=== PATIENT | female | born 1955 | race Caucasian/White ===

== ENCOUNTER → 2018-12-22 | Outpatient (CLI) | payer MEDICARE, BC ==
[2018-12-22 15:30] LABS: HCT 39.8 % (34.0-46.0); HGB 12.9 gm/dL (11.4-16.0); MCH 30.4 pg (25.0-35.0); MCHC 32.3 g/dL (31.0-37.0); MCV 94.1 fL (80.0-100.0); Mean Platelet Volume 7.6; Platelet Count 314 k/uL (150-450); RBC 4.23 m/uL (3.80-5.40); RDW 14.4 % (11.5-15.5); WBC 7.7 k/uL (3.8-10.6)
[2018-12-22 15:36] LABS: Albumin 3.7 g/dL (3.5-5.0); Calcium 9.2 mg/dL (8.4-10.2); Potassium 4.6 mmol/L (3.5-5.1); Total Bilirubin 0.5 mg/dL (0.2-1.3); Total Protein 6.5 g/dL (6.3-8.2)
[2018-12-22 15:45] LABS: INR 0.9 (<1.2); Partial Thromboplastin Time 23.6 sec (22.0-30.0); Prothrombin Time 10.2 sec (9.0-12.0)
[2018-12-22 15:52] LABS: Appearance,Urine Cloudy (Clear); Bilirubin,Urine Negative (Negative); Blood,Urine Negative (Negative); Color,Urine Yellow; Glucose,Urine (UA) Negative (Negative); Hyaline Casts,Urine 11 /lpf (0-2); Ketones,Urine Negative (Negative); Leukocyte Esterase,Urine Large (Negative); Mucus,Urine Rare /hpf; Nitrite,Urine Negative (Negative); PH, Urine 6.5 (5.0-8.0); Protein,Urine Negative (Negative); RBC,Urine 1 /hpf (0-5); Specific Gravity,Urine 1.017 (1.001-1.035); Squamous Epithelial Cell,Urine 4 /hpf (0-4); WBC,Urine 33 /hpf (0-5)
== END | disposition home or self-care (01) ==
LOC: LABPAT 13:12
PROVIDERS: ATTEND Orthopaedic Surgery
DX: Z01.812 Encounter for preprocedural laboratory examination (principal); Z79.01 Long term (current) use of anticoagulants
CPT/HCPCS: 80053; 81001; 85027; 85610; 85730; 87070

== ENCOUNTER 2018-12-27 07:44 | Inpatient (IN) | payer MEDICARE, BC ==
[~2018-12-27 07:44] MED LIST: ACETAMINOPHEN TAB 500 MG TAB PO ONE; GABAPENTIN 300 MG CAP PO ONE; LIDOCAINE 1% 20 ML VIAL (10MG/ML) FOR IV START INTRADERMA PRN; MELOXICAM 7.5 MG TAB PO ONE; MIDAZOLAM 2 MG/2 ML VIAL IV PRN; MIDAZOLAM 2 MG/2 ML VIAL ONE; PROPOFOL 10 MG/ML 20 ML VIAL IV ONE; ROPIVACAINE 246.25 MG, EPINEPHrine 0.5 MG, KETOROLAC 30 MG, cloNIDine HCL/PF 80 MCG, WA... MISCELLANE ONE; SODIUM CHLORIDE 0.9% 100 ML BAG ONE; TRANEXAMIC ACID 1,000 MG in SODIUM CHLORIDE 0.9% 100 ML IVPB ONE; TRANEXAMIC ACID 1,000 MG/10 ML VIAL ONE; ceFAZolin 3 GM in SODIUM CHLORIDE 0.9% 100 ML IVPB ONE; fentaNYL (PF) 50 MCG/ML 2 ML AMP IV PRN; fentaNYL (PF) 50 MCG/ML 2 ML AMP ONE
[2018-12-27] MEDS: LACTATED RINGERS 1,000 ML IV SCH ×2 (08:34→13:45)
[2018-12-27] MEDS ORDERED: ONDANSETRON 4 MG/2 ML VIAL IVP ONE (08:36)
[2018-12-27] MEDS ORDERED: DEXAMETHASONE SOD PHOSPHATE 10 MG/ML 1 ML VIAL IV ONE (08:36)
[2018-12-27] MEDS ORDERED: HYDROmorphone 0.5 MG/0.5 ML SYRINGE IVP PRN ×2 (09:06)
[2018-12-27] MEDS ORDERED: HYDROcodone/APAP 5-325MG 1 EACH TAB PO PRN (09:06)
[2018-12-27] MEDS ORDERED: HYDROmorphone 1 MG/ML 1 ML SYRINGE IVP PRN (09:06)
[2018-12-27] MEDS ORDERED: hydrOXYzine PAMOATE 25 MG CAP PO PRN (09:06)
[2018-12-27] MEDS ORDERED: NALOXONE 0.4 MG/ML 1 ML VIAL IV PRN (09:06)
[2018-12-27] MEDS ORDERED: MAGNESIUM HYDROXIDE 2,400 MG/10 ML CUP PO PRN (09:06)
[2018-12-27] MEDS ORDERED: DIAZEPAM 5 MG TAB PO PRN (09:06)
[2018-12-27] MEDS ORDERED: SODIUM CHLORIDE 0.9% IRRIG 1,000 ML BTL IRRIGATION ONE (09:30)
[2018-12-27] MEDS ORDERED: HEPARIN SODIUM,PORCINE 10,000 UNIT/ML 1 ML VIAL ONE (09:30)
[2018-12-27] MEDS: ROPIVACAINE 246.25 MG, EPINEPHrine 0.5 MG, KETOROLAC 30 MG, cloNIDine HCL/PF 80 MCG, WA... MISCELLANE ONE ×10 (10:16→10:43)
--- NOTE | 2018-12-27 11:15 | P.OP ---
Date of Procedure: 12/27/18 Preoperative Diagnosis: Severe osteoarthritis left hip Postoperative Diagnosis: Severe osteoarthritis left hip Procedure(s) Performed: Left total hip arthroplasty with a direct anterior approach Implants: Hernandez and nephew Polarstem size 4 standard Hernandez & Nephew R3, 3 hole acetabular shell, 52 mm Hernandez & Nephew reflection 6.5 mm cancellus screw, 20 mm 2 Hernandez [employer] Nephew R3, XLPE 20 acetabular liner Hernandez & Nephew Oxinium femoral head 36 m, +4 All components were press-fit. The articulation is Oxinium on polyethylene. Anesthesia: spinal Surgeon: Everardo Henderson Sales Planner #1: Katie Krueger Estimated Blood Loss (ml): 120 (50 mL returned with Cell Saver) Pathology: other (Femoral head) Condition: stable Disposition: PACU Indications for Procedure: After failure of conservative treatment we discussed the surgical and nonsurgical treatment options at length. Patient wishes to proceed with a total hip arthroplasty with a direct anterior approach. Complications specific to this procedure were discussed at length, including but not limited to infection, leg length discrepancy, dislocation, and nerve injury. Patient is aware of all these complications and informed consent was obtained Operative Findings: The operative findings are consistent with severe osteoarthritis of the left hip Description of Procedure: Patient was seen and evaluated in the preoperative area, consent was reviewed, and the surgical site was marked with a skin marker. Patient was then brought to the operating room and given prophylactic antibiotics intravenously. 1 g of Tranexamic acid was also given. A spinal anesthetic was administered by the anesthesia department. The patient was then placed on the [place] table with the bony prominences well-padded. The hip area was then prepped and draped in usual sterile fashion. A universal timeout was then performed, which confirmed the patient's name, surgical site, ALLERGIES, and procedure being performed. Next the incision site was located at 1 cm distal and 1 cm lateral to the anterior superior iliac spine. The skin and subcutaneous tissues were sharply incised. Incision was carefully dissected down to the fascia overlying the tensor fascia zach muscle. This fascia was then incised in line with the incision. Next, using blunt finger dissection, the tensor fascia zach muscle was dissected off its investing fascia. The muscle was then carefully retracted laterally with a cobra retractor over the lateral neck of the femur. Next, the circumflex vessels were identified and cauterized using the AquaMantis device. The anterior hip capsule was then exposed. The capsule was then opened and an inverted T fashion. Cobra retractors were then placed intracapsularly. The proximal femur was then visu alized. The femoral neck was then osteotomized appropriate level above the lesser trochanter. Small amount of traction was placed with the [place] table. A small wedge of bone was then removed from the remaining femoral head. Next, using a corkscrew femoral head was easily removed from the acetabulum. On gross visual inspection, the femoral head had complete loss of articular cartilage in multip le periarticular osteophytes. Attention was then turned to the acetabulum. the acetabulum was exposed and any remaining labrum was excised. Sequential reaming of the acetabulum was performed using fluoroscopic guidance. When the appropriate size was reached, a trial was then placed. The position and fit of the trial was checked with fluoroscopy. The trial was then removed. Then, using fluoroscopic guidance, the final implant was impacted at 20 of anteversion and 40 of abduction, and fully seated in the acetabulum. 2 screws were then placed in the acetabulum. Again fluoroscopy was used to check position of the screws. Next, the liner was then impacted, with a 20 elevated liner located in the anterior superior quadrant. Component locking was confirmed. Attention was then directed to the femur. With the aid of the [place] table, the femur was externally rotated to approximately 130, extended, and abducted under the opposite leg. A side hook was then placed under the proximal femur, and the side hook elevator was used to elevate the proximal femur. Retractors were then placed. A capsular release was performed, as well as a release of the conjoined tendon, which afforded excellent visualization of the proximal femur. Next, a box osteotome was used to lateralize the proximal femur. A sole sewer hand was then used to locate the femoral canal. Sequential broaching was then performed with appropriate size which afforded excellent fixation in the proximal femur. A trial was then placed with appropriate head and neck, and the hip was gently reduced with the aid of the [place] table. Fluoroscopy was then used to check position of the components, as well as to ensure equal leg lengths. The hip was then gently dislocated and the trials were then removed. Final implants were then impacted and the hip was again reduced. Final fluoroscopic x-rays confirmed that the components were in anatomic position, as well as equal leg lengths. The hip was also taken through range of motion, and found to be stable. The hip was then copiously irrigated with antibiotic solution with pulsatile lavage. The hip was then irrigated with Irrisept solution. The soft tissues were then injected with a ropivacaine solution, which consisted of 246.25 mg of ropivacaine, 0.5 mg of epinephrine, 30 mg of Toradol, 80 g of clonidine, and 48.45 mL of sterile water, for a total of 100 mL of fluid injected. A second dose of 1 g of Tranexamic acid was also given. the fascia was then closed with 2-0 strata fix suture. The subcutaneous tissue was closed with 3-0 Vicryl. The subcuticular tissue was closed with 3-0 strata fix suture. The skin was then closed with Dermabond glue and a sterile silver dressing. The patient was then transferred to the recovery room in stable condition. The web assistant ANGELI Barrera was required due to the complexity of surgery, and the need for skilled manager surgical for positioning, draping, exposure, retraction, and closure of the wound.
[2018-12-27] MEDS ORDERED: LACTATED RINGERS 1,000 ML IV ONE (11:38)
--- NOTE | 2018-12-27 12:31 | XR ---
Limited left hip HISTORY: Status post left hip arthroplasty Single frontal view of the left hip Patient is status post left hip arthroplasty. Some lucency present at the lateral bony acetabulum is noted, small chip fracture difficult to exclude. There is anatomic alignment. Lucency present in the soft tissues. IMPRESSION: Orthopedic follow-up as described.
[2018-12-27] MEDS: SODIUM CHLORIDE 0.9% 1,000 ML IV SCH ×2 (13:45→22:07)
[2018-12-27 14:30] VITALS: BMI 51.5
--- NOTE | 2018-12-27 14:40 | FL ---
Fluoroscopy HISTORY: Left hip arthroplasty 42 seconds fluoroscopy time supplied to the referring clinician. 2 intraoperative C-arm images docum ent the procedure. See dictated report from orthopedic surgery.
--- NOTE | 2018-12-27 14:40 | XR ---
Limited left hip HISTORY: Hip arthroplasty 2 intraoperative C-arm images document the procedure.
[2018-12-27] MEDS: HYDROcodone/APAP 5-325MG 1 EACH TAB PO PRN (15:20)
[2018-12-27] MEDS ORDERED: SENNOSIDES-DOCUSATE SODIUM 1 EACH TAB PO SCH (21:00)
[2018-12-27] MEDS ORDERED: CARBIDOPA-LEVODOPA 25-100 MG 1 EACH TAB PO SCH (21:00)
[2018-12-27] MEDS ORDERED: rOPINIRole HCL 4 MG TABLET PO SCH (21:00)
[2018-12-27] MEDS ORDERED: GABAPENTIN 300 MG CAP PO SCH (21:00)
--- NOTE | 2018-12-27 21:43 | P.CONS ---
History of Present Illness - Reason for Consult Consult date: 12/27/18 Medical management Requesting physician: Everardo Henderson - Chief Complaint Left hip pain - History of Present Illness Consultation: This is a very pleasant 63-year-old patient who follows with Dr. Natty Rose. Chronic stable medical conditions include atrial fibrillation, hypertension, obstructive sleep apnea uses CPAP machine, hypothyroid, anxiety depression. Patient does take eliquis. Patient today underwent left total hip arthroplasty. Pain is controlled. His only walk to the bathroom. No nausea vomiting. Did tolerate her supper. No chest pain or shortness of breath. Overall feels better. Sitting up in a chair. Watch television. Review of systems: GEN.: None EYES: None HEENT: None NECK: None RESPIRATORY: None CARDIOVASCULAR: None GASTROINTESTINAL: None GENITOURINARY: None MUSCULOSKELETAL: Authentic pain in his joints LYMPHATICS: None HEMATOLOGICAL: None PSYCHIATRY: Anxiety depression controlled NEUROLOGICAL: None Social history: Does not smoke or drink alcohol. Is a . Physical examination: VITAL SIGNS: 98.3, 69, 18, 108/66, 93% on room air GENERAL: BMI 50.6, sitting upon a chair, comfortable. EYES: Pupils equal. Conjunctiva normal. HEENT: External appearance of nose and ears normal, oral cavity grossly normal. NECK: JVD not raised; masses not palpable. HEART: First and second heart sounds are normal; no edema. LUNGS: Respiratory rate normal; clear to auscultation. ABDOMEN: Soft, nontender, liver spleen not palpable, no masses palpable. PSYCH: Alert and oriented x3; mood and affect normal. NEUROLOGICAL: Cranial nerves grossly intact; no facial asymmetry, power and sensation grossly intact. LYMPHATICS: No lymph nodes palpable in the axilla and neck MUSCULOSKELETAL: Evidence of OA in the hands, dressing over the left hip INVESTIGATIONS, reviewed in the clinical context: Blood work from 12/22/2018 White count 7.7 hemoglobin 12.9 potassium 4.6 creatinine 0.94 Assessment: -Left total hip arthroplasty -Persistent atrial fibrillation, chronically on eliquis -Essential hypertension -Obstructive sleep apnea uses CPAP machine -Hypothyroid -Anxiety depression otherwise specified -Morbid obesity BMI 50.6 Plan: Home medications resumed. Eliquis has been resumed. Care was discussed with the patient. Patient should follow-up with the family doctor and possibly dietitian for weight loss measures. Thank you Dr. Henderson Past Medical History Past Medical History: Atrial Fibrillation, Cancer, Hypertension, Osteoarthritis (OA), Sleep Apnea/CPAP/BIPAP Additional Past Medical History / Comment(s): uses cpap,hx uterine CA-no chemo or radiation History of Any Multi-Drug Resistant Organisms: None Reported Past Surgical History: Hysterectomy, Joint Replacement, Orthopedic Surgery Additional Past Surgical History / Comment(s): rt hip repacement,paulie en y,left thumb jt arthroplasty,carpel tunnel release solo,micro discectomy L4-L5 Past Anesthesia/Blood Transfusion Reactions: No Reported Reaction, Motion Sickness Additional Past Anesthesia/Blood Transfusion Reaction / Comm: no problems with prior blood transfusion Past Psychological History: Anxiety, Depression Smoking Status: Never smoker Past Alcohol Use History: None Reported Past Drug Use History: None Reported - Past Family History Mother Family Medical History: Cancer Additional Family Medical History / Comment(s): lung CA Medications and Allergies Home Medications Medication Instructions Recorded Confirmed Type Apixaban [Eliquis] 5 mg PO BID 12/21/18 12/27/18 History Carbidopa-Levodopa 25-100 mg 2 each PO HS 12/21/18 12/27/18 History [Sinemet 25-100] DULoxetine HCL [Cymbalta] 60 mg PO BID 12/21/18 12/27/18 History Diltiazem HCl [Cardizem LA] 180 mg PO QAM 12/21/18 12/27/18 History Ferrous Sulfate [Feosol] 325 mg PO DAILY 12/21/18 12/27/18 History Gabapentin [Neurontin] 600 mg PO HS 12/21/18 12/27/18 History Ibuprofen [Motrin] 800 mg PO BID 12/21/18 12/21/18 History Levothyroxine Sodium 150 mcg PO QAM 12/21/18 12/27/18 History Multivitamins, Thera [Multivitamin 1 tab PO DAILY 12/21/18 12/21/18 History (formulary)] Triamterene/Hydrochlorothiazid 1 each PO DAILY 12/21/18 12/27/18 History [Triamterene-Hctz 37.5-25 mg Tb] Vitamin D(Unknown Dose) 1 tab PO DAILY 12/21/18 History rOPINIRole HCL [Requip] 4 mg PO HS 12/21/18 12/27/18 History Allergies Allergy/AdvReac Type Severity Reaction Status Date / Time codeine AdvReac Nausea & Verified 12/27/18 08:07 Vomiting Physical Exam Vitals: Vital Signs Temp Pulse Resp BP Pulse Ox 12/27/18 19:03 98.3 F 69 18 108/66 93 L 12/27/18 14:45 71 109/62 12/27/18 14:30 67 118/65 12/27/18 14:15 67 121/63 12/27/18 14:00 97.6 F 71 14 115/67 99 12/27/18 13:30 67 16 114/62 99 12/27/18 13:00 64 16 111/60 99 12/27/18 12:45 66 16 115/54 98 12/27/18 12:30 61 16 106/51 98 12/27/18 12:17 76 16 104/67 98 12/27/18 12:16 62 16 91/55 99 12/27/18 12:01 67 16 89/48 95 12/27/18 11:44 97 F L 61 18 97/50 100 12/27/18 08:20 99.5 F 76 16 137/64 95 Intake and Output 12/27/18 12/27/18 12/27/18 06:59 14:59 22:59 Intake Total 1600 Output Total 120 Balance 1480 Intake: IV 1600 Output: Estimated Blood Loss 120
[2018-12-27] MEDS: DULoxetine HCL 60 MG CAPSULE.DR PO SCH (22:06)
[2018-12-28] MEDS: HYDROcodone/APAP 5-325MG 1 EACH TAB PO PRN (06:13)
[2018-12-28] MEDS ORDERED: LEVOTHYROXINE 50 MCG TAB PO SCH (06:30)
[2018-12-28] MEDS: DULoxetine HCL 60 MG CAPSULE.DR PO SCH (07:50)
[2018-12-28 08:14] LABS: Basophils % (A) 0 %; Eosinophils % (A) 0 %; HCT 37.2 % (34.0-46.0); Lymphocytes # (A) 0.9 k/uL (1.0-4.8); Lymphocytes % (A) 8 %; MCH 30.2 pg (25.0-35.0); MCHC 32.2 g/dL (31.0-37.0); MCV 93.9 fL (80.0-100.0); Monocytes # (A) 0.6 k/uL (0-1.0); Monocytes % (A) 6 %; Neutrophils # (A) 9.7 k/uL (1.3-7.7); Neutrophils % (A) 85 %; Platelet Count 329 k/uL (150-450); RBC 3.96 m/uL (3.80-5.40); RDW 13.2 % (11.5-15.5); WBC 11.3 k/uL (3.8-10.6)
[2018-12-28 08:19] VITALS: BP 107/68; PULSE 69; RESP 12; TEMP 98
[2018-12-28] MEDS ORDERED: DILTIAZEM CD 180 MG CAP.ER.24H PO SCH (09:00)
[2018-12-28] MEDS ORDERED: MULTIVITAMINS, THERA 1 EACH TAB PO SCH (09:00)
[2018-12-28] MEDS ORDERED: APIXABAN 5 MG TAB PO SCH (09:00)
[2018-12-28] MEDS ORDERED: FERROUS SULFATE 325 MG TAB PO SCH (09:00)
--- NOTE | 2018-12-28 09:25 | P.DS ---
Providers Date of admission: 12/27/18 07:44 Expected date of discharge: 12/28/18 Attending physician: Everardo Henderson Consults: 12/27/18 09:06 Consult Physician Routine Consulting Provider: Nader Chan Consult Reason/Comments: medical management and anticoagulation Do you want consulting provider notified?: Yes Primary care physician: Adriana Rose - Discharge Diagnosis(es) (1) Osteoarthritis of left hip Current Visit: Yes Status: Acute (2) Status post total hip replacement, left Current Visit: Yes Status: Acute Hospital Course: This is a 63-year-old female with known history of degenerative arthritis of the left hip. The patient presents for evaluation. After discussion and consideration patient elects to proceed with total hip arthroplasty. The patient is seen preoperatively by Dr. Henderson and medically cleared for surgery by their primary care physician. Patient is admitted to [facility] on 12/27/2018 for total hip arthroplasty. The procedures performed without complication or sequelae. The patient is doing well postoperatively. Labs and vital signs are stable on day of discharge. On day of discharge patient's hip incision is healing well. There is minimal erythema. There is no drainage noted at this time. There is minimal soft tissue swelling to the hip and thigh. Patient has full foot and ankle motion without difficulty or pain. Calf is soft and nontender to palpation. Neurovascular status to the left lower extremity is intact. Patient is discharged home in good condition. Opioid start talking form is reviewed and signed at patient bedside. Please see med rec for accurate list of home medications. Plan - Discharge Summary Discharge Rx Participant: No New Discharge Prescriptions: New HYDROcodone/APAP 5-325MG [[place] 5-325] 1 - 2 tab PO Q6HR PRN #56 tab PRN Reason: Pain Sennosides [Senokot] 1 tab PO BID #60 tablet No Action Levothyroxine Sodium 150 mcg PO QAM Apixaban [Eliquis] 5 mg PO BID DULoxetine HCL [Cymbalta] 60 mg PO BID Triamterene/Hydrochlorothiazid [Triamterene-Hctz 37.5-25 mg Tb] 1 each PO DAILY Diltiazem HCl [Cardizem LA] 180 mg PO QAM Ferrous Sulfate [Feosol] 325 mg PO DAILY rOPINIRole HCL [Requip] 4 mg PO HS Multivitamins, Thera [Multivitamin (formulary)] 1 tab PO DAILY Gabapentin [Neurontin] 600 mg PO HS Carbidopa-Levodopa 25-100 mg [Sinemet 25-100] 2 each PO HS Ibuprofen [Motrin] 800 mg PO BID Vitamin D(Unknown Dose) 1 tab PO DAILY Discharge Medication List Apixaban [Eliquis] 5 mg PO BID 12/21/18 [History] Carbidopa-Levodopa 25-100 mg [Sinemet 25-100] 2 each PO HS 12/21/18 [History] DULoxetine HCL [Cymbalta] 60 mg PO BID 12/21/18 [History] Diltiazem HCl [Cardizem LA] 180 mg PO QAM 12/21/18 [History] Ferrous Sulfate [Feosol] 325 mg PO DAILY 12/21/18 [History] Gabapentin [Neurontin] 600 mg PO HS 12/21/18 [History] Ibuprofen [Motrin] 800 mg PO BID 12/21/18 [History] Levothyroxine Sodium 150 mcg PO QAM 12/21/18 [History] Multivitamins, Thera [Multivitamin (formulary)] 1 tab PO DAILY 12/21/18 [History] Triamterene/Hydrochlorothiazid [Triamterene-Hctz 37.5-25 mg Tb] 1 each PO DAILY 12/21/18 [History] Vitamin D(Unknown Dose) 1 tab PO DAILY 12/21/18 [History] rOPINIRole HCL [Requip] 4 mg PO HS 12/21/18 [History] HYDROcodone/APAP 5-325MG [[place] 5-325] 1 - 2 tab PO Q6HR PRN #56 tab 12/28/18 [Rx] Sennosides [Senokot] 1 tab PO BID #60 tablet 12/28/18 [Rx] Follow up Appointment(s)/Referral(s): Everardo Henderson DO [Doctor of Osteopathic Medicine] - 01/13/19 2:00 pm Patient Instructions/Handouts: Anterior Hip Replacement (DC) Activity/Diet/Wound Care/Special Instructions: Weightbearing as tolerated with walker. Leave dressing intact. Dressing may be removed by home care nurse or by patient in 10 days. May shower with dressing on. Recommend use of compression stockings daily for at least 2 weeks during the day to help prevent swelling and blood clots. May remove at night before sleeping. Please follow-up with [facility] in 2 weeks and call with any questions or concerns, . Discharge Disposition: HOME WITH HOME HEALTH SERVICES
--- NOTE | 2018-12-29 01:16 | P.PN ---
Progress Note - Text Progress Note Date: 12/28/18 Interval history: This is a very pleasant 63-year-old patient who follows with Dr. Natty Rose. Chronic stable medical conditions include atrial fibrillation, hypertension, obstructive sleep apnea uses CPAP machine, hypothyroid, anxiety depression. Patient does take eliquis. Patient underwent left total hip arthroplasty. Pain is controlled. His only walk to the bathroom. No nausea vomiting. Did tolerate her supper. No chest pain or shortness of breath. Overall feels better. Sitting up in a chair. Watch television. Today-feeling better. Patient controlled. Has been out of bed. Did tolerate her diet. No nausea vomiting. Review of systems: Was done for constitutional, cardiovascular, GI, pulmonary. Musculoskeletal relevant finding as above Current medications reviewed from today's electronic records Physical examination: VITAL SIGNS: 98, 69, 12, 107/68, 97% room air GENERAL: BMI 50.6, sitting upon a chair, comfortable. EYES: Pupils equal. Conjunctiva normal. HEENT: External appearance of nose and ears normal, oral cavity grossly normal. NECK: JVD not raised; masses not palpable. HEART: First and second heart sounds are normal; no edema. LUNGS: Respiratory rate normal; clear to auscultation. ABDOMEN: Soft, nontender, liver spleen not palpable, no masses palpable. PSYCH: Alert and oriented x3; mood and affect normal. MUSCULOSKELETAL: Evidence of OA in the hands, dressing over the left hip INVESTIGATIONS, reviewed in the clinical context: Hemoglobin 12 Blood work from 12/22/2018 White count 7.7 hemoglobin 12.9 potassium 4.6 creatinine 0.94 Assessment: -Left total hip arthroplasty -Persistent atrial fibrillation, chronically on eliquis -Essential hypertension -Obstructive sleep apnea uses CPAP machine -Hypothyroid -Anxiety depression otherwise specified -Morbid obesity BMI 50.6 Plan: Stable. Continue current medications for plan. Thank you Dr. Henderson
== END 2018-12-28 11:46 | disposition home health service (06) | DRG 470 ==
LOC: 2ORMAIN 07:44 → 4SSUR 13:41
PROVIDERS: ADMIT Orthopaedic Surgery; ATTEND Orthopaedic Surgery
PROC: 30233N0 Transfusion of Autologous Red Blood Cells into Peripheral Vein, Percutaneous Approach (ICD-10-PCS; 2018-12-27)
PROC: 0SRB06A Replacement of Left Hip Joint with Oxidized Zirconium on Polyethylene Synthetic Substitute, Uncemented, Open Approach (ICD-10-PCS; principal; 2018-12-27 09:15)
DX: M16.12 Unilateral primary osteoarthritis, left hip (principal); I48.1 Persistent atrial fibrillation; Z68.43 Body mass index [BMI] 50.0-59.9, adult; E66.01 Morbid (severe) obesity due to excess calories; I10 Essential (primary) hypertension; G47.33 Obstructive sleep apnea (adult) (pediatric); E03.9 Hypothyroidism, unspecified; F32.9 Major depressive disorder, single episode, unspecified; F41.9 Anxiety disorder, unspecified; G25.81 Restless legs syndrome; Z96.641 Presence of right artificial hip joint; Z79.01 Long term (current) use of anticoagulants; Z79.899 Other long term (current) drug therapy; Z79.890 Hormone replacement therapy; Z90.710 Acquired absence of both cervix and uterus; Z85.42 Personal history of malignant neoplasm of other parts of uterus; Z88.5 Allergy status to narcotic agent; Z98.84 Bariatric surgery status; Z80.1 Family history of malignant neoplasm of trachea, bronchus and lung; Z82.3 Family history of stroke; Z82.49 Family history of ischemic heart disease and other diseases of the circulatory system; Z82.0 Family history of epilepsy and other diseases of the nervous system
CPT/HCPCS: 73501; 85025; 86850; 86891; 86900; 86901

== ENCOUNTER 2019-01-20 14:50 | Inpatient (IN) | payer MEDICARE, BC ==
[2019-01-20] MEDS ORDERED: HYDROcodone/APAP 5-325MG 1 EACH TAB PO PRN ×2 (15:57)
[2019-01-20] MEDS ORDERED: NALOXONE 0.4 MG/ML 1 ML VIAL IV PRN (16:02)
[2019-01-20] MEDS ORDERED: HYDROmorphone 0.5 MG/0.5 ML SYRINGE IVP PRN (16:02)
[2019-01-20] MEDS ORDERED: DIAZEPAM 5 MG TAB PO PRN (16:02)
[2019-01-20] MEDS ORDERED: hydrOXYzine PAMOATE 25 MG CAP PO PRN (16:02)
[2019-01-20] MEDS ORDERED: MAGNESIUM HYDROXIDE 2,400 MG/10 ML CUP PO PRN (16:02)
[2019-01-20 17:04] LABS: Basophils % (A) 1 %; Eosinophils # (A) 0.4 k/uL (0-0.7); Eosinophils % (A) 6 %; HCT 36.2 % (34.0-46.0); HGB 11.2 gm/dL (11.4-16.0); Hypochromasia Slight; Lymphocytes # (A) 1.2 k/uL (1.0-4.8); Lymphocytes % (A) 17 %; MCH 30.4 pg (25.0-35.0); Mean Platelet Volume 6.9; Monocytes # (A) 0.4 k/uL (0-1.0); Monocytes % (A) 5 %; Neutrophils # (A) 4.9 k/uL (1.3-7.7); Neutrophils % (A) 70 %; Platelet Count 373 k/uL (150-450); RBC 3.69 m/uL (3.80-5.40); RDW 13.3 % (11.5-15.5)
[2019-01-20 17:13] LABS: Partial Thromboplastin Time 24.4 sec (22.0-30.0); Prothrombin Time 10.4 sec (9.0-12.0)
[2019-01-20 17:14] LABS: African American GFR (CKD) >90 (>60 ml/min/1.73 sqM); Anion Gap 6 mmol/L; Blood Urea Nitrogen 20 mg/dL (7-17); Calcium 9.1 mg/dL (8.4-10.2); Carbon Dioxide 31 mmol/L (22-30); Chloride 99 mmol/L (98-107); Glucose 103 mg/dL (74-99); Potassium 3.8 mmol/L (3.5-5.1); Sodium 136 mmol/L (137-145)
--- NOTE | 2019-01-20 17:18 | US ---
EXAMINATION TYPE: US venous doppler duplex LE LT DATE OF EXAM: 01/20/2019 4:06 PM COMPARISON: NONE CLINICAL HISTORY: pain. Femur fracture. On blood thinners. No redness. Leg pain. SIDE PERFORMED: Left TECHNIQUE: The lower extremity deep venous system is examined utilizing real time linear array sonog kelsey with graded compression, doppler sonography and color-flow sonography. VESSELS IMAGED: External Iliac Vein (EIV) Common Femoral Vein Deep Femoral Vein Greater Saphenous Vein * Femoral Vein Popliteal Vein Small Saphenous Vein * Proximal Calf Veins (* superficial vessels) Left Leg: Negative for DVT IMPRESSION: Negative exam. No evidence of deep venous thrombosis in the left leg.
[2019-01-20] MEDS: SODIUM CHLORIDE 0.9% 1,000 ML IV SCH (17:58)
[2019-01-20 18:28] LABS: Appearance,Urine Clear (Clear); Bilirubin,Urine Negative (Negative); Blood,Urine Negative (Negative); Color,Urine Yellow; Glucose,Urine (UA) Negative (Negative); Ketones,Urine Negative (Negative); Leukocyte Esterase,Urine Negative (Negative); Nitrite,Urine Negative (Negative); PH, Urine 6.5 (5.0-8.0); Protein,Urine Negative (Negative); Specific Gravity,Urine 1.009 (1.001-1.035); Urobilinogen,Urine <2.0 mg/dL (<2.0)
[2019-01-20] MEDS: SENNOSIDES-DOCUSATE SODIUM 1 EACH TAB PO SCH (20:09)
[2019-01-20] MEDS: rOPINIRole HCL 4 MG TABLET PO SCH (21:20)
[2019-01-20] MEDS: GABAPENTIN 300 MG CAP PO SCH (21:20)
[2019-01-20] MEDS: DULoxetine HCL 60 MG CAPSULE.DR PO SCH (21:20)
[2019-01-20] MEDS: CARBIDOPA-LEVODOPA 25-100 MG 1 EACH TAB PO SCH (21:20)
[2019-01-21] MEDS: SODIUM CHLORIDE 0.9% 1,000 ML IV SCH ×2 (05:33→20:12)
[2019-01-21] MEDS: LEVOTHYROXINE 75 MCG TAB PO SCH ×2 (05:33→09:07)
[2019-01-21] MEDS: HYDROmorphone 0.5 MG/0.5 ML SYRINGE IVP PRN ×3 (07:32→20:11)
--- NOTE | 2019-01-21 08:28 | P.HPOR ---
History of Present Illness H&P Date: 01/20/19 This is a 63 year-old female who is a known patient to [facility]. Patient is admitted for periprosthetic fracture of the left hip. Patient underwent direct anterior approach left total hip arthroplasty on 12/27/[address] Everardo Henderson. Patient presented as an outpatient today for routine post op follow up and x-rays revealed a periprosthetic fracture of the left hip. Patient states that she has been having muscle spasms in the left thigh and left knee pain, but she denies any injury or fall. Patient states that the first week after her surgery she had no problems with walking. Patient states that after the first week she has had difficulty with weightbearing on the left lower ext remity and has been using a walker. Patient presented today in a wheelchair. Patient denies any numbness, tingling or weakness. Patient's past medical history significant for atrial fibrillation, hypertension, sleep apnea, osteoarthritis and history of uterine cancer. Patient is on Eliquis for atrial fibrillation. Review of Systems See HPI. Past Medical History Past Medical History: Atrial Fibrillation, Cancer, Hypertension, Osteoarthritis (OA), Sleep Apnea/CPAP/BIPAP Additional Past Medical History / Comment(s): uses cpap,hx uterine CA-no chemo or radiation History of Any Multi-Drug Resistant Organisms: None Reported Past Surgical History: Hysterectomy, Joint Replacement, Orthopedic Surgery Additional Past Surgical History / Comment(s): rt hip repacement,paulie en y,left thumb jt arthroplasty,carpel tunnel release solo,micro discectomy L4-L5, left hip replacement, restless leg Past Anesthesia/Blood Transfusion Reactions: No Reported Reaction, Motion Sickness Additional Past Anesthesia/Blood Transfusion Reaction / Comment(s): no problems with prior blood transfusion Past Psychological History: Anxiety, Depression Smoking Status: Never smoker Past Alcohol Use History: None Reported Past Drug Use History: None Reported - Past Family History Mother Family Medical History: Cancer Additional Family Medical History / Comment(s): lung CA Medications and Allergies Home Medications Medication Instructions Recorded Confirmed Type Apixaban [Eliquis] 5 mg PO BID 12/21/18 01/20/19 History Carbidopa-Levodopa 25-100 mg 2 tab PO HS 12/21/18 01/20/19 History [Sinemet 25-100 mg] DULoxetine HCL [Cymbalta] 60 mg PO BID 12/21/18 01/20/19 History Diltiazem HCl [Cardizem LA] 180 mg PO DAILY 12/21/18 01/20/19 History Ferrous Sulfate [Iron (65 MG 325 mg PO DAILY 12/21/18 01/20/19 History Elemental)] Gabapentin [Neurontin] 600 mg PO HS 12/21/18 01/20/19 History Levothyroxine Sodium 150 mcg PO DAILY 12/21/18 01/20/19 History Multivitamins, Thera [Multivitamin 1 tab PO DAILY 12/21/18 01/20/19 History (formulary)] rOPINIRole HCL [Requip] 4 mg PO HS 12/21/18 01/20/19 History HYDROcodone/APAP 5-325MG [[place] 1 - 2 tab PO Q6HR PRN #56 tab 12/28/18 01/20/19 Rx 5-325] Calcium Carbonate/Vitamin D3 1 tab PO DAILY 01/20/19 01/20/19 History [Calcium 500-Vit D3 600 Tablet] Diazepam [Valium] 5 mg PO TID PRN 01/20/19 01/20/19 History Ibuprofen [Motrin] 800 mg PO BID 01/20/19 01/20/19 History Sennosides [Senokot] 1 tab PO BID PRN 01/20/19 01/20/19 History Triamterene-Hctz 37.5-25Mg 1 cap PO DAILY 01/20/19 01/20/19 History [Dyazide 37.5-25 Capsule] Allergies Allergy/AdvReac Type Severity Reaction Status Date / Time codeine AdvReac Nausea & Verified 01/20/19 17:19 Vomiting Physical Examination On exam patient's incision is well-healed with no surrounding erythema, drainage or warmth. Patient has limited range of motion of the left lower extremity. There is swelling of the left lower extremity. Calf is soft and nontender to palpation. Sensation intact. Neurovascular status and circulatory status are intact. Results X-rays of the left hip and pelvis dated 01/20/2019 from [facility] show a periprosthetic fracture of the left femur. - Labs Result Diagrams: 01/20/19 16:52 01/20/19 16:52 Assessment and Plan (1) Periprosthetic fracture around internal prosthetic left hip joint Current Visit: Yes Status: Acute Code(s): M97.02XA - PERIPROSTH FRACTURE AROUND INTERNAL PROSTH L HIP JT, INIT SNOMED Code(s): 407724109 (2) Status post total hip replacement, left Current Visit: No Status: Acute Code(s): Z96.642 - PRESENCE OF LEFT ARTIFICIAL HIP JOINT SNOMED Code(s): 214827618442 Plan: #1. Continue pain control. #2. Hold Eliquis. Bilateral SCDs. #3. Nonweightbearing to the left lower extremity. #4. Appreciate input from medicine. #5. Planning for ORIF of the left femur in the near future. Would like patient to be off of Eliquis for at least 48 hours due to high bleeding risk associated with the upcoming surgery. Surgery and post op plan is discussed with the patient in detail this morning. All patient questions and concerns are addressed today as thoroughly as possible.
--- NOTE | 2019-01-21 08:31 | P.PN ---
Subjective Progress Note Date: 01/21/19 This is a 63-year-old female who is admitted for periprosthetic fracture of left femur. Patient is seen and evaluated at bedside today with Dr. Everardo Henderson. Patient states that her pain is well controlled and she is comfortable. Patient denies any new symptoms or complaints today. Objective - Vital Signs Vital signs: Vital Signs Temp 98 F 01/21/19 07:00 Pulse 69 01/21/19 07:35 Resp 16 01/21/19 07:00 BP 108/65 01/21/19 07:00 Pulse Ox 99 01/21/19 07:00 Intake & Output 01/20/19 01/21/19 01/21/19 18:59 06:59 18:59 Intake Total 1040 Output Total 1400 950 Balance -1400 90 Weight 133.81 kg Intake: Intake, IV Titration 560 Amount Sodium Chloride 0.9% 1, 560 000 ml @ 70 mls/hr IV . [id number] [facility] Rx#:[id number] Oral 480 Output: Urine 1400 950 Uretheral (Soto) 1400 Other: Voiding Method Indwelling Catheter Indwelling Catheter - Exam On exam patient is resting comfortably in bed in no acute distress. Patient is alert and oriented 3. There is swelling of the left lower extremity. Surgical incision is well-healed with no surrounding erythema, drainage or warmth. Calf is soft and nontender to palpation. Sensation intact. Neurovascular status and circulatory status are intact. - Labs CBC & Chem 7: 01/20/19 16:52 01/20/19 16:52 Labs: Abnormal Lab Results - Last 24 Hours (Table) 01/20/19 01/20/19 Range/Units 16:52 16:52 RBC 3.69 L (3.80-5.40) m/uL Hgb 11.2 L (11.4-16.0) gm/dL Sodium 136 L (137-145) mmol/L Carbon Dioxide 31 H (22-30) mmol/L BUN 20 H (7-17) mg/dL Glucose 103 H (74-99) mg/dL Assessment and Plan Assessment: Atrial fibrillation Hstory of uterine cancer Hypertension Osteoarthritis Sleep apnea (1) Periprosthetic fracture around internal prosthetic left hip joint Current Visit: Yes Status: Acute Code(s): M97.02XA - PERIPROSTH FRACTURE AROUND INTERNAL PROSTH L HIP JT, INIT SNOMED Code(s): 839013538 (2) Status post total hip replacement, left Current Visit: No Status: Acute Code(s): Z96.642 - PRESENCE OF LEFT ARTIFICIAL HIP JOINT SNOMED Code(s): 925782773648 Plan: #1. Continue pain control. #2. Hold Eliquis. Bilateral SCDs. #3. Nonweightbearing to the left lower extremity. #4. Appreciate input from medicine. #5. Planning for ORIF of the left femur in the near future. Would like patient to be off of Eliquis for at least 48 hours due to high bleeding risk associated with the upcoming surgery. Surgery and post op plan are discussed with the patient in detail this morning. All patient questions and concerns are addressed today as thoroughly as possible.
[2019-01-21 08:50] LABS: Basophils # (A) 0.1 k/uL (0-0.2); Basophils % (A) 2 %; Eosinophils # (A) 0.4 k/uL (0-0.7); Eosinophils % (A) 8 %; HCT 35.6 % (34.0-46.0); HGB 10.9 gm/dL (11.4-16.0); Hypochromasia Slight; Lymphocytes # (A) 1.1 k/uL (1.0-4.8); Lymphocytes % (A) 22 %; MCH 30.5 pg (25.0-35.0); MCHC 30.6 g/dL (31.0-37.0); MCV 99.7 fL (80.0-100.0); Mean Platelet Volume 7.1; Monocytes # (A) 0.3 k/uL (0-1.0); Monocytes % (A) 6 %; Neutrophils # (A) 2.8 k/uL (1.3-7.7); Neutrophils % (A) 59 %; Platelet Count 346 k/uL (150-450); RBC 3.57 m/uL (3.80-5.40); RDW 13.5 % (11.5-15.5); WBC 4.8 k/uL (3.8-10.6)
[2019-01-21] MEDS: DULoxetine HCL 60 MG CAPSULE.DR PO SCH ×2 (09:06→21:33)
[2019-01-21] MEDS: FERROUS SULFATE 325 MG TAB PO SCH (09:07)
[2019-01-21] MEDS: TRIAMTERENE-HCTZ 37.5-25MG 1 EACH CAP PO SCH (09:08)
[2019-01-21] MEDS: DILTIAZEM CD 180 MG CAP.ER.24H PO SCH (09:08)
[2019-01-21] MEDS: SENNOSIDES-DOCUSATE SODIUM 1 EACH TAB PO SCH (19:45)
--- NOTE | 2019-01-21 20:34 | P.CONS ---
History of Present Illness - Reason for Consult Consult date: 01/21/19 Medical management Requesting physician: Everardo Henderson - Chief Complaint Left hip pain - History of Present Illness Consultation: This is a very pleasant 63-year-old patient who follows with Dr. Melissa Rose. Chronic stable medical conditions include atrial fibrillation, hypertension, obstructive sleep apnea uses CPAP machine, hypothyroid, anxiety depression. Patient does take eliquis. On December 27 patient underwent left total hip arthroplasty. Was doing well and discharged home. With home therapy. For 2 weeks patient been noticing increasing spasm in the left lower extremity and the hip area. Had been able to continue with therapy. Does no trauma. No fever no chills. Pain was worse with activity better with rest. Decided to come in. X- ray confirmed patient about periprosthetic fracture. Eliquis has been held with a view to proceed with surgery in 48 hours. No chest pain or shortness of breath. Review of systems: GEN.: None EYES: None HEENT: None NECK: None RESPIRATORY: None CARDIOVASCULAR: None GASTROINTESTINAL: None GENITOURINARY: None MUSCULOSKELETAL: pain in his joints LYMPHATICS: None HEMATOLOGICAL: None PSYCHIATRY: Anxiety depression controlled NEUROLOGICAL: None Social history: Does not smoke or drink alcohol. Is a . Physical examination: VITAL SIGNS: 98, 74, 17, [id number], 91% room air GENERAL: BMI 50.6, laying in bed awake EYES: Pupils equal. Conjunctiva normal. HEENT: External appearance of nose and ears normal, oral cavity grossly normal. NECK: JVD not raised; masses not palpable. HEART: First and second heart sounds are normal; no edema. LUNGS: Respiratory rate normal; clear to auscultation. ABDOMEN: Soft, nontender, liver spleen not palpable, no masses palpable. PSYCH: Alert and oriented x3; mood and affect normal. NEUROLOGICAL: Cranial nerves grossly intact; no facial asymmetry, power and sensation grossly intact. LYMPHATICS: No lymph nodes palpable in the axilla and neck MUSCULOSKELETAL: Evidence of OA in the hands, INVESTIGATIONS, reviewed in the clinical context: White count 4.8 hemoglobin 10.9 platelets 346 hemoglobin on December 28 was 12 creatinine 0.75 Assessment: -Left hip periprosthetic fracture in a patient who hip was replaced on December 27 -Acute muscle spasm in the left side -Persistent atrial fibrillation, chronically on eliquis -Essential hypertension -Obstructive sleep apnea uses CPAP machine -Hypothyroid -Anxiety depression otherwise specified -Morbid obesity BMI 50.6 Plan: Care was discussed with the patient. Home medications resumed. Jorge calloway held. Pain control was placed. Patient will be scheduled for surgery in about [address] Henedrson Past Medical History Past Medical History: Atrial Fibrillation, Cancer, Hypertension, Osteoarthritis (OA), Sleep Apnea/CPAP/BIPAP Additional Past Medical History / Comment(s): uses cpap,hx uterine CA-no chemo or radiation History of Any Multi-Drug Resistant Organisms: None Reported Past Surgical History: Hysterectomy, Joint Replacement, Orthopedic Surgery Additional Past Surgical History / Comment(s): rt hip repacement,paulie en y,left thumb jt arthroplasty,carpel tunnel release solo,micro discectomy L4-L5, left hip replacement, restless leg Past Anesthesia/Blood Transfusion Reactions: No Reported Reaction, Motion Sickness Additional Past Anesthesia/Blood Transfusion Reaction / Comm: no problems with prior blood transfusion Past Psychological History: Anxiety, Depression Smoking Status: Never smoker Past Alcohol Use History: None Reported Past Drug Use History: None Reported - Past Family History Mother Family Medical History: Cancer Additional Family Medical History / Comment(s): lung CA Medications and Allergies Home Medications Medication Instructions Recorded Confirmed Type Apixaban [Eliquis] 5 mg PO BID 12/21/18 01/20/19 History Carbidopa-Levodopa 25-100 mg 2 tab PO HS 12/21/18 01/20/19 History [Sinemet 25-100 mg] DULoxetine HCL [Cymbalta] 60 mg PO BID 12/21/18 01/20/19 History Diltiazem HCl [Cardizem LA] 180 mg PO DAILY 12/21/18 01/20/19 History Ferrous Sulfate [Iron (65 MG 325 mg PO DAILY 12/21/18 01/20/19 History Elemental)] Gabapentin [Neurontin] 600 mg PO HS 12/21/18 01/20/19 History Levothyroxine Sodium 150 mcg PO DAILY 12/21/18 01/20/19 History Multivitamins, Thera [Multivitamin 1 tab PO DAILY 12/21/18 01/20/19 History (formulary)] rOPINIRole HCL [Requip] 4 mg PO HS 12/21/18 01/20/19 History HYDROcodone/APAP 5-325MG [Golden 1 - 2 tab PO Q6HR PRN #56 tab 12/28/18 01/20/19 Rx 5-325] Calcium Carbonate/Vitamin D3 1 tab PO DAILY 01/20/19 01/20/19 History [Calcium 500-Vit D3 600 Tablet] Diazepam [Valium] 5 mg PO TID PRN 01/20/19 01/20/19 History Ibuprofen [Motrin] 800 mg PO BID 01/20/19 01/20/19 History Sennosides [Senokot] 1 tab PO BID PRN 01/20/19 01/20/19 History Triamterene-Hctz 37.5-25Mg 1 cap PO DAILY 01/20/19 01/20/19 History [Dyazide 37.5-25 Capsule] Allergies Allergy/AdvReac Type Severity Reaction Status Date / Time codeine AdvReac Nausea & Verified 01/20/19 17:19 Vomiting Physical Exam Vitals: Vital Signs Temp Pulse Resp BP Pulse Ox 01/21/19 08:33 98 F 74 17 118/72 91 L 01/21/19 07:35 69 01/21/19 07:00 98 F 69 16 108/65 99 01/21/19 03:20 97.6 F 71 122/70 99 01/20/19 20:17 97.6 F 70 16 119/76 98 01/20/19 16:36 97.6 F 66 16 121/79 97 Intake and Output 01/20/19 01/21/19 01/21/19 22:59 06:59 14:59 Intake Total 480 560 Output Total 1400 950 400 Balance -920 -390 -400 Intake: Intake, IV Titration 560 Amount Sodium Chloride 0.9% 1, 560 000 ml @ 70 mls/hr IV . [id number] [facility] Rx#:[id number] Oral 480 Output: Urine 1400 950 400 Uretheral (Soto) 1400 Other: Voiding Method Indwelling Catheter Indwelling Catheter Weight 133.81 kg Results CBC & Chem 7: 01/21/19 07:19 01/20/19 16:52 Labs: Abnormal Lab Results - Last 24 Hours (Table) 01/20/19 01/20/19 01/21/19 Range/Units 16:52 16:52 07:19 RBC 3.69 L 3.57 L (3.80-5.40) m/uL Hgb 11.2 L 10.9 L (11.4-16.0) gm/dL MCHC 30.6 L (31.0-37.0) g/dL Sodium 136 L (137-145) mmol/L Carbon Dioxide 31 H (22-30) mmol/L BUN 20 H (7-17) mg/dL Glucose 103 H (74-99) mg/dL
[2019-01-21] MEDS: rOPINIRole HCL 4 MG TABLET PO SCH (21:33)
[2019-01-21] MEDS: GABAPENTIN 300 MG CAP PO SCH (21:33)
[2019-01-21] MEDS: CARBIDOPA-LEVODOPA 25-100 MG 1 EACH TAB PO SCH (21:33)
[2019-01-22] MEDS: LEVOTHYROXINE 75 MCG TAB PO SCH (05:36)
[2019-01-22] MEDS: FERROUS SULFATE 325 MG TAB PO SCH (07:38)
[2019-01-22] MEDS: DULoxetine HCL 60 MG CAPSULE.DR PO SCH ×2 (07:38→20:24)
[2019-01-22] MEDS: TRIAMTERENE-HCTZ 37.5-25MG 1 EACH CAP PO SCH (07:38)
[2019-01-22] MEDS: DILTIAZEM CD 180 MG CAP.ER.24H PO SCH (07:38)
--- NOTE | 2019-01-22 09:08 | P.PN ---
Subjective Progress Note Date: 01/22/19 Principal diagnosis: Periprosthetic left femur fracture The patient is a 63-year-old female who was admitted from our office for a periprosthetic fracture left femur. The patient was seen and evaluated at bedside today. She states her pain is controlled and she is comfortable at this time. No new complaints today. She is scheduled for an ORIF periprosthetic left femur fracture tomorrow morning with Dr. Everardo Henderson. She will be NPO at midnight. The patient is on Eliquis and surgery is on hold for at least 48 hours since her last dose. Objective - Vital Signs Vital signs: Vital Signs Temp 97.6 F 01/22/19 07:00 Pulse 72 01/22/19 07:00 Resp 15 01/22/19 07:00 BP 130/75 01/22/19 07:00 Pulse Ox 97 01/22/19 07:00 Intake & Output 01/21/19 01/22/19 01/22/19 18:59 06:59 18:59 Intake Total 296 560 Output Total 1700 1500 Balance -1404 -940 Intake: Intake, IV Titration 560 Amount Sodium Chloride 0.9% 1, 560 000 ml @ 70 mls/hr IV . [id number] [facility] Rx#:[id number] Oral 296 Output: Urine 1700 1500 Other: Voiding Method Indwelling Catheter Indwelling Catheter - Exam The patient is a very pleasant 63-year-old female who is in no acute distress. She is alert and oriented 3. There is swelling to the left lower extremity. Anterior surgical incision to the left hip is well healed with no signs of infection. Calf is soft and nontender. Good foot and ankle motion present. Neurological and circulatory status is intact. - Labs CBC & Chem 7: 01/21/19 07:19 01/20/19 16:52 Assessment and Plan (1) Periprosthetic fracture around internal prosthetic left hip joint Current Visit: Yes Status: Acute Code(s): M97.02XA - PERIPROSTH FRACTURE AROUND INTERNAL PROSTH L HIP JT, INIT SNOMED Code(s): 251628121 (2) Status post total hip replacement, left Current Visit: No Status: Acute Code(s): Z96.642 - PRESENCE OF LEFT ARTIFICIAL HIP JOINT SNOMED Code(s): 336986943539 Plan: The clinical and x-ray findings were discussed with the patient. Surgical intervention in the form of an ORIF of the left femur is scheduled for tomorrow morning. She will be NPO at midnight tonight. Continue pain control. Hold Eliquis until after surgery tomorrow. Bilateral SCDs are in place. Nonweightbearing to the left lower extremity. We will continue to follow patient closely and make further recommendations as needed.
[2019-01-22] MEDS: HYDROmorphone 0.5 MG/0.5 ML SYRINGE IVP PRN ×2 (10:53→20:27)
[2019-01-22] MEDS: SODIUM CHLORIDE 0.9% 1,000 ML IV SCH (12:58)
--- NOTE | 2019-01-22 17:54 | P.PN ---
Progress Note - Text Progress Note Date: 01/22/19 Consultation: This is a very pleasant 63-year-old patient who follows with Dr. Melissa Rose. Chronic stable medical conditions include atrial fibrillation, hypertension, obstructive sleep apnea uses CPAP machine, hypothyroid, anxiety depression. Patient does take eliquis. On December 27 patient underwent left total hip arthroplasty. Was doing well and discharged home. With home therapy. For 2 weeks patient been noticing increasing spasm in the left lower extremity and the hip area. Had been able to continue with therapy. Does no trauma. No fever no chills. Pain was worse with activity better with rest. Decided to come in. X- ray confirmed patient about periprosthetic fracture.(This was done at the outside hospital in [place]) Eliquis has been held with a view to proceed with surgery in 48 hours. No chest pain or shortness of breath. Today-laying in bed. No new issues. Breathing is stable. Pain is controlled. Review of systems: Was done for constitutional, cardiovascular, GI, pulmonary. relevant finding as above Active Medications Hydrocodone Bitart/Acetaminophen (Bovill 5-325) 1 each PO Q4HR PRN PRN Reason: Mild Pain Hydrocodone Bitart/Acetaminophen (Bovill 5-325) 2 each PO Q4HR PRN PRN Reason: Moderate Pain Carbidopa/Levodopa (Sinemet 25-100) 2 each PO HS [facility] Last Admin: 01/21/19 21:33 Dose: 2 each Documented by: Diazepam (Valium) 2.5 mg PO Q8HR PRN PRN Reason: Mild Spasms Diltiazem HCl (Cardizem Cd) 180 mg PO DAILY [facility] Last Admin: 01/22/19 07:38 Dose: 180 mg Documented by: Duloxetine HCl (Cymbalta) 60 mg PO BID [facility] Last Admin: 01/22/19 07:38 Dose: 60 mg Documented by: Ferrous Sulfate (Feosol) 325 mg PO DAILY [facility] Last Admin: 01/22/19 07:38 Dose: 325 mg Documented by: Gabapentin (Neurontin) 600 mg PO HS [facility] Last Admin: 01/21/19 21:33 Dose: 600 mg Documented by: Hydromorphone HCl (Dilaudid) 0.25 mg IVP Q3HR PRN PRN Reason: Pain Scale 1 to 3 Hydromorphone HCl (Dilaudid) 1 mg IVP Q3HR PRN PRN Reason: Pain Scale 7 to 10 Hydromorphone HCl (Dilaudid) 0.5 mg IVP Q3HR PRN PRN Reason: Pain Scale 4 to 6 Last Admin: 01/22/19 10:53 Dose: 0.5 mg Documented by: Hydroxyzine Pamoate (Vistaril) 25 mg PO Q4HR PRN PRN Reason: Nausea, Anxiety, Pain Control Sodium Chloride (Saline 0.9%) 1,000 mls @ 70 mls/hr IV .[id number] [facility] Last Admin: 01/22/19 12:58 Dose: Not Given Documented by: Levothyroxine Sodium (Synthroid) 150 mcg PO DAILY@0630 [facility] Last Admin: 01/22/19 05:36 Dose: 150 mcg Documented by: Magnesium Hydroxide (Milk Of Magnesia) 2,400 mg PO DAILY PRN PRN Reason: Constipation Naloxone HCl (Narcan) 0.2 mg IV Q2M PRN PRN Reason: Opioid Reversal Ropinirole HCl (Requip) 4 mg PO [facility] Last Admin: 01/21/19 21:33 Dose: 4 mg Documented by: Senna/Docusate Sodium (Senokot-S) 2 each PO HS [facility] Last Admin: 01/21/19 19:45 Dose: Not Given Documented by: Triamterene/HCTZ (Dyazide) 1 each PO DAILY [facility] Last Admin: 01/22/19 07:38 Dose: 1 each Documented by: Physical examination: VITAL SIGNS: 97.6, 72, 15, 130/75, 97% room air GENERAL: Laying in bed, comfortable EYES: Pupils equal. Conjunctiva normal. HEENT: External appearance of nose and ears normal, oral cavity grossly normal. NECK: JVD not raised; masses not palpable. HEART: First and second heart sounds are normal; no edema. LUNGS: Respiratory rate normal; clear to auscultation. ABDOMEN: Soft, nontender, liver spleen not palpable, no masses palpable. PSYCH: Alert and oriented x3; mood and affect normal. MUSCULOSKELETAL: Evidence of OA in the hands, INVESTIGATIONS, reviewed in the clinical context: Hemoglobin 10.9 platelets 346 Previous testing White count 4.8 hemoglobin 10.9 platelets 346 hemoglobin on December 28 was 12 creatinine 0.75 Assessment: -Left hip periprosthetic fracture in a patient who hip was replaced on December 27 -Acute muscle spasm in the left side -Persistent atrial fibrillation, chronically on eliquis -Essential hypertension -Obstructive sleep apnea uses CPAP machine -Hypothyroid -Anxiety depression otherwise specified -Morbid obesity BMI 50.6 Plan: Care was discussed with the patient. Continue current medication. Patient scheduled for surgery tomorrow morning. Medically stable to proceed for surgery. Thank you Dr. Henderson
[2019-01-22] MEDS: SENNOSIDES-DOCUSATE SODIUM 1 EACH TAB PO SCH (20:24)
[2019-01-22] MEDS: CARBIDOPA-LEVODOPA 25-100 MG 1 EACH TAB PO SCH (20:24)
[2019-01-22] MEDS: GABAPENTIN 300 MG CAP PO SCH (20:25)
[2019-01-22] MEDS: rOPINIRole HCL 4 MG TABLET PO SCH (21:48)
[2019-01-23] MEDS: SODIUM CHLORIDE 0.9% 1,000 ML IV SCH ×4 (04:48→20:48)
[2019-01-23] MEDS: LEVOTHYROXINE 75 MCG TAB PO SCH (04:48)
[2019-01-23 07:21] LABS: Basophils # (A) 0.1 k/uL (0-0.2); Basophils % (A) 2 %; Eosinophils # (A) 0.6 k/uL (0-0.7); Eosinophils % (A) 9 %; HCT 37.8 % (34.0-46.0); HGB 11.5 gm/dL (11.4-16.0); Hypochromasia Slight; Lymphocytes # (A) 1.5 k/uL (1.0-4.8); Lymphocytes % (A) 26 %; MCH 30.1 pg (25.0-35.0); MCHC 30.4 g/dL (31.0-37.0); MCV 99.1 fL (80.0-100.0); Mean Platelet Volume 6.9; Monocytes # (A) 0.4 k/uL (0-1.0); Monocytes % (A) 6 %; Neutrophils # (A) 3.2 k/uL (1.3-7.7); Neutrophils % (A) 54 %; Platelet Count 358 k/uL (150-450); RBC 3.82 m/uL (3.80-5.40); RDW 13.6 % (11.5-15.5); WBC 5.9 k/uL (3.8-10.6)
[2019-01-23] MEDS ORDERED: ceFAZolin 3 GM in SODIUM CHLORIDE 0.9% 100 ML IVPB ONE (07:30)
[2019-01-23] MEDS: TRIAMTERENE-HCTZ 37.5-25MG 1 EACH CAP PO SCH (07:47)
[2019-01-23] MEDS: DILTIAZEM CD 180 MG CAP.ER.24H PO SCH (07:47)
[2019-01-23] MEDS: DULoxetine HCL 60 MG CAPSULE.DR PO SCH ×2 (07:47→20:42)
[2019-01-23] MEDS: FERROUS SULFATE 325 MG TAB PO SCH (07:47)
[2019-01-23] MEDS ORDERED: ONDANSETRON 4 MG/2 ML VIAL IVP PRN (07:58)
[2019-01-23] MEDS ORDERED: ePHEDrine SULFATE/0.9% NACL/PF 50 MG/5 ML SYRINGE IV ONE (08:21)
[2019-01-23] MEDS ORDERED: MIDAZOLAM 2 MG/2 ML VIAL ONE (08:21)
[2019-01-23] MEDS ORDERED: KETAMINE 10 MG/ML 20 ML VIAL ONE (08:21)
[2019-01-23] MEDS ORDERED: fentaNYL (PF) 50 MCG/ML 2 ML AMP ONE (08:21)
[2019-01-23] MEDS ORDERED: PROPOFOL 10 MG/ML 20 ML VIAL IV ONE (08:21)
[2019-01-23] MEDS ORDERED: PHENYLEPHRINE-0.9% NACL SYG 1 MG/10 ML SYRINGE ONE (08:21)
[2019-01-23] MEDS ORDERED: IV FLUID CONTINUATION 1,000 ML IV ONE (08:26)
[2019-01-23] MEDS ORDERED: LACTATED RINGERS 1,000 ML IV ONE ×3 (09:28→09:48)
--- NOTE | 2019-01-23 11:03 | P.OP ---
Date of Procedure: 01/23/19 Preoperative Diagnosis: Periprosthetic fracture left total hip Postoperative Diagnosis: Periprosthetic fracture left total hip Procedure(s) Performed: Open reduction and internal fixation periprosthetic fracture left hip and revision left total hip arthroplasty Implants: Hernandez and nephew readapt femoral revision stem size 17 x 1 90 mm standard offset Hernandez [employer] Nephew accord 2.0 mm cables 5 [employer]hew Oxinium femoral head 36 m, +4 All components were press-fit. The articulation is Oxinium on polyethylene. Anesthesia: spinal Surgeon: Everardo Henderson Veterans' Coordinator #1: Katie Krueger Estimated Blood Loss (ml): 200 Pathology: none sent Condition: stable Disposition: PACU Indications for Procedure: This is a 63-year-old female that had a left total hip arthroplasty performed on December 27 by myself. She did very well postoperatively and then approximately a week and half to 2 weeks after her surgery began to have severe pain in her leg. She presented to the office which an x-ray demonstrated a periprosthetic fracture of her left femur. After discussing the surgical nonsurgical treatment options with her at length, I recommended open reduction and internal fixation of her fracture as well as revision of her femoral stem. Informed consent was obtained. Operative Findings: The operative findings are consistent with a periprosthetic fracture of the left femur Description of Procedure: Patient was seen and evaluated in the preoperative area, consent was reviewed, and the surgical site was marked with a skin marker. Patient was then brought to the operating room and given prophylactic antibiotics intravenously. A spinal anesthetic was administered by the anesthesia department. The patient was then placed on the operative table and placed in the lateral decubitus position with the bony prominences well-padded. The hip area was then prepped and draped in usual sterile fashion. A universal timeout was then performed, which confirmed the patient's name, surgical site, ALLERGIES, and procedure being performed. Next the incision site was located in the lateral aspect of the hip, centered at the tip of the greater trochanter.. The skin and subcutaneous tissues were sharply incised. Incision was carefully dissected down to the fascia. This fascia was then incised in line with the incision. Next, a Charnley retractor was then placed in the abductors were identified. The anterior one third of the abductors was released off the trochanter and one large sleeve. The femur was then exposed distally and the fracture was readily visualized. After the fracture hematoma was evacuated cables were placed across the fracture site and tightened provisionally. Next attention was then directed to the proximal femur. The anterior hip capsule was then exposed. The capsule was then opened. The proximal femur was then visualized. The hip was then gently dislocated. The proximal femur was then exposed. Retractors were then placed. The femoral stem was then removed from the femur without incident. Next, using the appropriate reamers, the femur was reamed to a size 17. The proximal femur was then reamed with appropriate reamer to accommodate the proximal body of the stem. Trials were then placed and the hip was gently reduced. The leg lengths were checked and found to be equal. Hip was then taken through full range of motion, was stable throughout. Next, the hip was gently dislocated, and the trials were removed. Final implants were then impacted and the hip was again reduced. The leg lengths were again examined and found to be equal. The hip was also taken through range of motion, and found to be stable. Next, the cables were then tightened and secured. An intraoperative x-ray was performed at shoulder fracture reduced in good position alignment as well as good position of the femoral component. The hip was then copiously irrigated with antibiotic solution with pulsatile lavage. The hip was then irrigated with Irrisept solution. The soft tissues were then injected with ropivacaine solution. A second dose of 1 g of Tranexamic acid was given. The abductors were then repaired with #5 Ethibond suture with drill holes to the bone. The fascia was closed with #2 strata fix suture. The subcutaneous tissue was closed with 3-0 Vicryl. The subcuticular tissue was closed with 30 strata fix suture. The skin was then closed with janell. The patient was then transferred to the recovery room in stable condition. The Asst.ANGELI Borja was required due to the complexity of surgery, and the need for skilled rn surgical pcu for positioning, draping, exposure, retraction, and closure of the wound.and closure of the wound.
[2019-01-23] MEDS ORDERED: HYDROcodone/APAP 7.5-325MG 1 EACH TAB PO PRN (11:17)
--- NOTE | 2019-01-23 11:21 | XR ---
EXAMINATION TYPE: XR Hip Limited LT , ONE VIEW DATE OF EXAM ORDERED: 01/23/2019 HISTORY: Status post hip surgery, assess surgical alignment. COMPARISON: Previous study dated 12/27/2018. FINDINGS: A revision arthroplasty and tension banding has been performed. Prosthetic elements appear in good position. IMPRESSION: STATUS POST LEFT HIP REVISION ARTHROPLASTY.
[2019-01-23] MEDS: HYDROmorphone 1 MG/ML 1 ML SYRINGE IVP ONE ×4 (11:25→11:43)
[2019-01-23] MEDS ORDERED: diphenhydrAMINE 50 MG/ML 1 ML VIAL IVP ONE (11:50)
--- NOTE | 2019-01-23 13:14 | XR ---
EXAMINATION TYPE: XR Hip Limited LT , 2 VIEWS DATE OF EXAM ORDERED: 01/23/2019 HISTORY: POST OP ALIGNMENT. COMPARISON: Previous study dated earlier today. FINDINGS: There is been a revision arthroplasty and tension banding of the left hip. Prosthetic [place] ents appear in good position. IMPRESSION: STATUS POST REVISION ARTHROPLASTY, LEFT HIP.
[2019-01-23] MEDS: HYDROcodone/APAP 7.5-325MG 1 EACH TAB PO PRN (14:13)
[2019-01-23] MEDS: ceFAZolin 3 GM in SODIUM CHLORIDE 0.9% 100 ML IVPB SCH (17:12)
[2019-01-23] MEDS: HYDROmorphone 1 MG/ML 1 ML SYRINGE IVP PRN (17:12)
[2019-01-23] MEDS: SENNOSIDES-DOCUSATE SODIUM 1 EACH TAB PO SCH (20:42)
[2019-01-23] MEDS: GABAPENTIN 300 MG CAP PO SCH (20:42)
[2019-01-23] MEDS: rOPINIRole HCL 4 MG TABLET PO SCH (20:42)
[2019-01-23] MEDS: CARBIDOPA-LEVODOPA 25-100 MG 1 EACH TAB PO SCH (20:42)
--- NOTE | 2019-01-23 23:08 | P.PN ---
Progress Note - Text Progress Note Date: 01/23/19 Interval history: This is a very pleasant 63-year-old patient who follows with Dr. Melissa Rose. courtney stable medical conditions include atrial fibrillation, hypertension, obstructive sleep apnea uses CPAP machine, hypothyroid, anxiety depression. Patient does take eliquis. On December 27 patient underwent left total hip arthroplasty. Was doing well and discharged home. With home therapy. For 2 weeks patient been noticing increasing spasm in the left lower extremity and the hip area. Had been able to continue with therapy. Does no trauma. No fever no chills. Pain was worse with activity better with rest. Decided to come in. X- ray confirmed patient about periprosthetic fracture.(This was done at the outside hospital in [place]) Eliquis has been held with a view to proceed with surgery in 48 hours. No chest pain or shortness of breath. Today underwent left hip surgery. Postprocedure laying in bed. Comfortable. No new issues. But tired. Review of systems: Was done for constitutional, cardiovascular, GI, pulmonary. Musculoskeletal, relevant finding as above Active Medications Hydrocodone Bitart/Acetaminophen ([place] 7.5-325) 1 each PO Q6H PRN PRN Reason: Pain Scale 1 to 5 Hydrocodone Bitart/Acetaminophen ([place] 7.5-325) 2 each PO Q6H PRN PRN Reason: Pain Scale 6 to 10 Last Admin: 01/23/19 14:13 Dose: 2 each Documented by: Apixaban (Eliquis) 5 mg PO BID [facility] Carbidopa/Levodopa (Sinemet 25-100) 2 each PO HS [facility] Last Admin: 01/23/19 20:42 Dose: 2 each Documented by: Diazepam (Valium) 2.5 mg PO Q8HR PRN PRN Reason: Mild Spasms Diltiazem HCl (Cardizem Cd) 180 mg PO DAILY [facility] Last Admin: 01/23/19 07:47 Dose: Not Given Documented by: Duloxetine HCl (Cymbalta) 60 mg PO BID [facility] Last Admin: 01/23/19 20:42 Dose: 60 mg Documented by: Ferrous Sulfate (Feosol) 325 mg PO DAILY [facility] Last Admin: 01/23/19 07:47 Dose: Not Given Documented by: Gabapentin (Neurontin) [address] [facility] Last Admin: 01/23/19 20:42 Dose: 600 mg Documented by: Hydromorphone HCl (Dilaudid) 0.25 mg IVP Q3HR PRN PRN Reason: Pain Scale 1 to 3 Hydromorphone HCl (Dilaudid) 1 mg IVP Q3HR PRN PRN Reason: Pain Scale 7 to 10 Last Admin: 01/23/19 17:12 Dose: 1 mg Documented by: Hydromorphone HCl (Dilaudid) 0.5 mg IVP Q3HR PRN PRN Reason: Pain Scale 4 to 6 Last Admin: 01/22/19 20:27 Dose: 0.5 mg Documented by: Hydroxyzine Pamoate (Vistaril) 25 mg PO Q4HR PRN PRN Reason: Nausea, Anxiety, Pain Control Last Admin: 01/23/19 14:13 Dose: 25 mg Documented by: Sodium Chloride (Saline 0.9%) 1,000 mls @ 70 mls/hr IV .[id number] [facility] Last Admin: 01/23/19 16:00 Dose: Not Given Documented by: Sodium Chloride (Saline 0.9%) 1,000 mls @ 70 mls/hr IV .[id number] [facility] Last Admin: 01/23/19 20:48 Dose: 70 mls/hr Documented by: Cefazolin Sodium 3 gm/ Sodium (Chloride) 100 mls @ 200 mls/hr IVPB Q8H [facility] Stop: 01/24/19 01:29 Last Admin: 01/23/19 17:12 Dose: 200 mls/hr Documented by: Levothyroxine Sodium (Synthroid) 150 mcg PO DAILY@0630 [facility] Last Admin: 01/23/19 04:48 Dose: Not Given Documented by: Magnesium Hydroxide (Milk Of Magnesia) 2,400 mg PO DAILY PRN PRN Reason: Constipation Naloxone HCl (Narcan) 0.2 mg IV Q2M PRN PRN Reason: Opioid Reversal Ondansetron HCl (Zofran) 4 mg IVP Q8H PRN PRN Reason: Nausea And Vomiting Last Admin: 01/23/19 11:26 Dose: 4 mg Documented by: Ropinirole HCl (Requip) [address] [facility] Last Admin: 01/23/19 20:42 Dose: 4 mg Documented by: Senna/Docusate Sodium (Senokot-S) [address] [facility] Last Admin: 01/23/19 20:42 Dose: 2 each Documented by: Triamterene/HCTZ (Dyazide) 1 each PO DAILY [facility] Last Admin: 01/23/19 07:47 Dose: Not Given Documented by: Physical examination: VITAL SIGNS: 97, 75, 16, 156/79, 96% on 2 L GENERAL: Laying in bed, comfortable EYES: Pupils equal. Conjunctiva normal. HEENT: External appearance of nose and ears normal, oral cavity grossly normal. NECK: JVD not raised; masses not palpable. HEART: First and second heart sounds are normal; no edema. LUNGS: Respiratory rate normal; clear to auscultation. ABDOMEN: Soft, nontender, liver spleen not palpable, no masses palpable. PSYCH: Alert and oriented x3; mood and affect normal. MUSCULOSKELETAL: Evidence of OA in the hands, INVESTIGATIONS, reviewed in the clinical context: Hemoglobin 11.5 Previous testing White count 4.8 hemoglobin 10.9 platelets 346 hemoglobin on December 28 was 12 creatinine 0.75 Assessment: -Left hip periprosthetic fracture in a patient who hip was replaced on December 27. Today underwent revision of the left hip arthroplasty and ORIF of the periprosthetic fracture -Acute muscle spasm in the like, better -Persistent atrial fibrillation, chronically on eliquis -Essential hypertension -Obstructive sleep apnea uses CPAP machine -Hypothyroid -Anxiety depression otherwise specified -Morbid obesity BMI 50.6 Plan: Care was discussed with the patient. Eliquis to be resumed when okay by Dr. Dr. Henderson. Questions were answered. Thank you Dr. Henderson
[2019-01-24] MEDS: HYDROmorphone 1 MG/ML 1 ML SYRINGE IVP PRN ×2 (00:35→07:49)
[2019-01-24] MEDS: ceFAZolin 3 GM in SODIUM CHLORIDE 0.9% 100 ML IVPB SCH (00:35)
[2019-01-24] MEDS: HYDROcodone/APAP 7.5-325MG 1 EACH TAB PO PRN ×3 (04:56→17:06)
[2019-01-24] MEDS: LEVOTHYROXINE 75 MCG TAB PO SCH (05:47)
[2019-01-24] MEDS: SODIUM CHLORIDE 0.9% 1,000 ML IV SCH ×3 (07:04→17:19)
[2019-01-24] MEDS: DILTIAZEM CD 180 MG CAP.ER.24H PO SCH (07:49)
[2019-01-24] MEDS: APIXABAN 5 MG TAB PO SCH ×2 (07:49→21:14)
[2019-01-24] MEDS: DULoxetine HCL 60 MG CAPSULE.DR PO SCH ×2 (07:49→21:14)
[2019-01-24] MEDS: FERROUS SULFATE 325 MG TAB PO SCH (07:50)
[2019-01-24] MEDS: TRIAMTERENE-HCTZ 37.5-25MG 1 EACH CAP PO SCH (07:50)
[2019-01-24 08:45] LABS: Basophils % (A) 0 %; Eosinophils # (A) 0.1 k/uL (0-0.7); Eosinophils % (A) 2 %; HCT 30.4 % (34.0-46.0); HGB 10.1 gm/dL (11.4-16.0); Lymphocytes % (A) 12 %; MCH 31.6 pg (25.0-35.0); MCHC 33.4 g/dL (31.0-37.0); MCV 94.6 fL (80.0-100.0); Mean Platelet Volume 7.1; Monocytes # (A) 0.5 k/uL (0-1.0); Monocytes % (A) 6 %; Neutrophils # (A) 6.8 k/uL (1.3-7.7); Neutrophils % (A) 79 %; Platelet Count 337 k/uL (150-450); RBC 3.21 m/uL (3.80-5.40); RDW 13.4 % (11.5-15.5); WBC 8.6 k/uL (3.8-10.6)
--- NOTE | 2019-01-24 09:20 | P.PN ---
Subjective Progress Note Date: 01/24/19 This is an 83-year-old female who is status post open reduction and internal fixation periprosthetic fracture left hip and revision left total hip arthroplasty. This is postoperative day #1 and patient is seen and evaluated at bedside with Dr. Everardo Henderson. Patient states that her pain is well- controlled and she denies any new complaints today. Patient denies any fever/chi lls, numbness, weakness, tingling, abdominal pain, shortness of breath or chest pain. Objective - Vital Signs Vital signs: Vital Signs Temp 98.7 F 01/24/19 07:51 Pulse 103 H 01/24/19 07:51 Resp 16 01/24/19 07:51 BP 123/56 01/24/19 07:51 Pulse Ox 99 01/24/19 07:51 Intake & Output 01/23/19 01/24/19 01/24/19 18:59 06:59 18:59 Intake Total 2342 Output Total 300 425 Balance 2042 -425 Intake: IV 1750 Oral 592 Output: Urine 100 425 Estimated Blood Loss 200 Other: Voiding Method Indwelling Catheter Indwelling Catheter # Voids 3 - Exam Vital signs are stable. Patient is in no acute distress and is alert and oriented 3. Calf is soft and nontender to palpation. Dressing is clean, dry, and intact. Patient has full foot and ankle motion without pain or difficulty. Neurovascular status and circulatory status are intact. - Labs CBC & Chem 7: 01/24/19 07:31 01/20/19 16:52 Labs: Abnormal Lab Results - Last 24 Hours (Table) 01/24/19 Range/Units 07:31 RBC 3.21 L (3.80-5.40) m/uL Hgb 10.1 L (11.4-16.0) gm/dL Hct 30.4 L (34.0-46.0) % Assessment and Plan Assessment: Atrial fibrillation Hstory of uterine cancer Hypertension Osteoarthritis Sleep apnea (1) Periprosthetic fracture around internal prosthetic left hip joint Current Visit: Yes Status: Acute Code(s): M97.02XA - PERIPROSTH FRACTURE AROUND INTERNAL PROSTH L HIP JT, INIT SNOMED Code(s): 420627261 (2) Status post total hip replacement, left Current Visit: No Status: Acute Code(s): Z96.642 - PRESENCE OF LEFT ARTIFICIAL HIP JOINT SNOMED Code(s): 188917396669 Plan: Continue routine postop care and pain control. Continue hip precautions with abductor pillow x6 weeks. Continue anticoagulation with Eliquis. 50% weightbearing to the left lower extremity with a walker. Daily dressing changes. [place] to be removed in 10-14 days postoperatively. Appreciate input from medicine. Likely discharge to rehab in the next 24-48 hours.
[2019-01-24] MEDS: GABAPENTIN 300 MG CAP PO SCH (21:14)
[2019-01-24] MEDS: CARBIDOPA-LEVODOPA 25-100 MG 1 EACH TAB PO SCH (21:14)
[2019-01-24] MEDS: rOPINIRole HCL 4 MG TABLET PO SCH (21:14)
[2019-01-24] MEDS: SENNOSIDES-DOCUSATE SODIUM 1 EACH TAB PO SCH (21:14)
--- NOTE | 2019-01-24 23:29 | P.PN ---
Progress Note - Text Progress Note Date: 01/24/19 Interval history: This is a very pleasant 63-year-old patient who follows with Dr. Melissa Rose. courtney stable medical conditions include atrial fibrillation, hypertension, obstructive sleep apnea uses CPAP machine, hypothyroid, anxiety depression. Patient does take eliquis. On December 27 patient underwent left total hip arthroplasty. Was doing well and discharged home. With home therapy. For 2 weeks patient been noticing increasing spasm in the left lower extremity and the hip area. Had been able to continue with therapy. Does no trauma. No fever no chills. Pain was worse with activity better with rest. Decided to come in. X- ray confirmed patient about periprosthetic fracture.(This was done at the outside hospital in [place]) Eliquis has been held with a view to proceed with surgery in 48 hours. No chest pain or shortness of breath. Surgical intervention on January 31. Today-sitting up in a chair. Feeling better. Pain is controlled. Did tolerate her breakfast. Review of systems: Was done for constitutional, cardiovascular, GI, pulmonary. Musculoskeletal, relevant finding as above Active Medications Hydrocodone Bitart/Acetaminophen ([place] 7.5-325) 1 each PO Q6H PRN PRN Reason: Pain Scale 1 to 5 Hydrocodone Bitart/Acetaminophen ([place] 7.5-325) 2 each PO Q6H PRN PRN Reason: Pain Scale 6 to 10 Last Admin: 01/24/19 17:06 Dose: 2 each Documented by: Apixaban (Eliquis) 5 mg PO BID [facility] Last Admin: 01/24/19 21:14 Dose: 5 mg Documented by: Carbidopa/Levodopa (Sinemet 25-100) 2 each PO HS [facility] Last Admin: 01/24/19 21:14 Dose: 2 each Documented by: Diazepam (Valium) 2.5 mg PO Q8HR PRN PRN Reason: Mild Spasms Diltiazem HCl (Cardizem Cd) 180 mg PO DAILY [facility] Last Admin: 01/24/19 07:49 Dose: 180 mg Documented by: Duloxetine HCl (Cymbalta) 60 mg PO BID [facility] Last Admin: 01/24/19 21:14 Dose: 60 mg Documented by: Ferrous Sulfate (Feosol) 325 mg PO DAILY [facility] Last Admin: 01/24/19 07:50 Dose: 325 mg Documented by: Gabapentin (Neurontin) 600 mg PO HS [facility] Last Admin: 01/24/19 21:14 Dose: 600 mg Documented by: Hydromorphone HCl (Dilaudid) 0.25 mg IVP Q3HR PRN PRN Reason: Pain Scale 1 to 3 Hydromorphone HCl (Dilaudid) 1 mg IVP Q3HR PRN PRN Reason: Pain Scale 7 to 10 Last Admin: 01/24/19 07:49 Dose: 1 mg Documented by: Hydromorphone HCl (Dilaudid) 0.5 mg IVP Q3HR PRN PRN Reason: Pain Scale 4 to 6 Last Admin: 01/22/19 20:27 Dose: 0.5 mg Documented by: Hydroxyzine Pamoate (Vistaril) 25 mg PO Q4HR PRN PRN Reason: Nausea, Anxiety, Pain Control Last Admin: 01/23/19 14:13 Dose: 25 mg Documented by: Sodium Chloride (Saline 0.9%) 1,000 mls @ 70 mls/hr IV .[id number] [facility] Last Admin: 01/24/19 17:19 Dose: Not Given Documented by: Sodium Chloride (Saline 0.9%) 1,000 mls @ 70 mls/hr IV .[id number] [facility] Last Admin: 01/24/19 07:50 Dose: Not Given Documented by: Levothyroxine Sodium (Synthroid) 150 mcg PO DAILY@0630 [facility] Last Admin: 01/24/19 05:47 Dose: 150 mcg Documented by: Magnesium Hydroxide (Milk Of Magnesia) 2,400 mg PO DAILY PRN PRN Reason: Constipation Naloxone HCl (Narcan) 0.2 mg IV Q2M PRN PRN Reason: Opioid Reversal Ondansetron HCl (Zofran) 4 mg IVP Q8H PRN PRN Reason: Nausea And Vomiting Last Admin: 01/23/19 11:26 Dose: 4 mg Documented by: Ropinirole HCl (Requip) 4 mg PO [facility] Last Admin: 01/24/19 21:14 Dose: 4 mg Documented by: Senna/Docusate Sodium (Senokot-S) 2 each PO [facility] Last Admin: 01/24/19 21:14 Dose: 2 each Documented by: Triamterene/HCTZ (Dyazide) 1 each PO DAILY [facility] Last Admin: 01/24/19 07:50 Dose: 1 each Documented by: Physical examination: VITAL SIGNS: 98.7, 103, 16, 123/56, 99% room air GENERAL: Sitting up in a chair comfortable EYES: Pupils equal. Conjunctiva normal. HEENT: External appearance of nose and ears normal, oral cavity grossly normal. NECK: JVD not raised; masses not palpable. HEART: First and second heart sounds are normal; no edema. LUNGS: Respiratory rate normal; clear to auscultation. ABDOMEN: Soft, nontender, liver spleen not palpable, no masses palpable. PSYCH: Alert and oriented x3; mood and affect normal. MUSCULOSKELETAL: Evidence of OA in the hands, INVESTIGATIONS, reviewed in the clinical context: Hemoglobin 11.5 Previous testing White count 4.8 hemoglobin 10.9 platelets 346 hemoglobin on December 28 was 12 creatinine 0.75 Assessment: -Left hip periprosthetic fracture in a patient who hip was replaced on December 27. Today underwent revision of the left hip arthroplasty and ORIF of the periprosthetic fracture. 50% weightbearing on the left lower extremity. -Acute muscle spasm left leg, improved -Persistent atrial fibrillation, chronically on eliquis -Essential hypertension -Obstructive sleep apnea uses CPAP machine -Hypothyroid -Anxiety depression otherwise specified -Morbid obesity BMI 50.6 Plan: Doing better. Stable. Home medications resumed. Working with therapy. Eliquis started. Thank you Dr. Henderson
[2019-01-25] MEDS: SODIUM CHLORIDE 0.9% 1,000 ML IV SCH ×4 (03:30→23:52)
[2019-01-25] MEDS: HYDROcodone/APAP 7.5-325MG 1 EACH TAB PO PRN ×2 (04:18→14:41)
[2019-01-25] MEDS: LEVOTHYROXINE 75 MCG TAB PO SCH (06:00)
[2019-01-25] MEDS: FERROUS SULFATE 325 MG TAB PO SCH (08:09)
[2019-01-25] MEDS: APIXABAN 5 MG TAB PO SCH ×2 (08:10→20:05)
[2019-01-25] MEDS: TRIAMTERENE-HCTZ 37.5-25MG 1 EACH CAP PO SCH (08:10)
[2019-01-25] MEDS: DULoxetine HCL 60 MG CAPSULE.DR PO SCH ×2 (08:10→20:06)
[2019-01-25] MEDS: DILTIAZEM CD 180 MG CAP.ER.24H PO SCH (08:10)
--- NOTE | 2019-01-25 09:29 | P.PN ---
Subjective Progress Note Date: 01/25/19 This is an 83-year-old female who is status post open reduction and internal fixation periprosthetic fracture left hip and revision left total hip arthroplasty. This is postoperative day #2 and patient is seen and evaluated at bedside with Dr. Everardo Henderson. Patient states that she has been up and walking with physical therapy. Patient denies any new complaints today. Pat narendra denies any fever/chills, numbness, weakness, tingling, abdominal pain, shortness of breath or chest pain. Objective - Vital Signs Vital signs: Vital Signs Temp 97.6 F 01/25/19 07:00 Pulse 89 01/25/19 08:11 Resp 16 01/25/19 07:00 BP 136/71 01/25/19 08:11 Pulse Ox 95 01/25/19 07:00 Intake & Output 01/24/19 01/25/19 01/25/19 18:59 06:59 18:59 Intake Total 240 1200 Output Total 300 400 Balance -60 1200 -400 Intake: Intake, IV Titration 700 Amount Sodium Chloride 0.9% 1, 700 000 ml @ 70 mls/hr IV . [id number] [facility] Rx#:[id number] Oral 240 500 Output: Urine 300 400 Uretheral ([place]) 300 Other: Voiding Method Indwelling Catheter Bedside Commode # Voids 1 # Bowel Movements 1 - Exam Vital signs are stable. Patient is in no acute distress and is alert and oriented 3. Calf is soft and nontender to palpation. Dressing is clean, dry, and intact. Patient has full foot and ankle motion without pain or difficulty. Neurovascular status and circulatory status are intact. - Labs CBC & Chem 7: 01/24/19 07:31 01/20/19 16:52 Assessment and Plan Assessment: Atrial fibrillation Hstory of uterine cancer Hypertension Osteoarthritis Sleep apnea (1) Periprosthetic fracture around internal prosthetic left hip joint Current Visit: Yes Status: Acute Code(s): M97.02XA - PERIPROSTH FRACTURE AROUND INTERNAL PROSTH L HIP JT, INIT SNOMED Code(s): 504922258 (2) Status post total hip replacement, left Current Visit: No Status: Acute Code(s): Z96.642 - PRESENCE OF LEFT ARTIFICIAL HIP JOINT SNOMED Code(s): 501992710149 Plan: Continue routine postop care and pain control. Continue hip precautions with abductor pillow x6 weeks. Continue anticoagulation with Eliquis. 50% weightbearing to the left lower extremity with a walker. Daily dressing changes. [place] to be removed in 10-14 days postoperatively. Appreciate input from medicine. Likely discharge to rehab in the next 24-48 hours.
[2019-01-25 10:35] LABS: Basophils % (A) 0 %; Eosinophils # (A) 0.6 k/uL (0-0.7); Eosinophils % (A) 6 %; HCT 25.1 % (34.0-46.0); Hypochromasia Slight; Lymphocytes # (A) 1.1 k/uL (1.0-4.8); Lymphocytes % (A) 12 %; MCH 30.9 pg (25.0-35.0); MCHC 31.7 g/dL (31.0-37.0); MCV 97.5 fL (80.0-100.0); Mean Platelet Volume 6.4; Monocytes # (A) 0.4 k/uL (0-1.0); Monocytes % (A) 5 %; Neutrophils # (A) 6.9 k/uL (1.3-7.7); Neutrophils % (A) 75 %; Platelet Count 317 k/uL (150-450); RBC 2.57 m/uL (3.80-5.40); RDW 13.4 % (11.5-15.5); WBC 9.1 k/uL (3.8-10.6)
[2019-01-25 10:42] LABS: HGB 7.9 gm/dL (11.4-16.0)
[2019-01-25] MEDS: GABAPENTIN 300 MG CAP PO SCH (20:05)
[2019-01-25] MEDS: rOPINIRole HCL 4 MG TABLET PO SCH (20:05)
[2019-01-25] MEDS: SENNOSIDES-DOCUSATE SODIUM 1 EACH TAB PO SCH (20:06)
[2019-01-25] MEDS: CARBIDOPA-LEVODOPA 25-100 MG 1 EACH TAB PO SCH (20:06)
--- NOTE | 2019-01-26 00:11 | P.PN ---
Progress Note - Text Progress Note Date: 01/25/19 Interval history: This is a very pleasant 63-year-old patient who follows with Dr. Melissa Rose. courtney stable medical conditions include atrial fibrillation, hypertension, obstructive sleep apnea uses CPAP machine, hypothyroid, anxiety depression. Patient does take eliquis. On December 27 patient underwent left total hip arthroplasty. Was doing well and discharged home. With home therapy. For 2 weeks patient been noticing increasing spasm in the left lower extremity and the hip area. Had been able to continue with therapy. Does no trauma. No fever no chills. Pain was worse with activity better with rest. Decided to come in. X- ray confirmed patient about periprosthetic fracture.(This was done at the outside hospital in [place]) Eliquis has been held with a view to proceed with surgery in 48 hours. No chest pain or shortness of breath. Surgical intervention on January 31. Today-sitting up in a chair. Did work with therapy. No new issues. Diet is fair.. Review of systems: Was done for constitutional, cardiovascular, GI, pulmonary. Musculoskeletal, relevant finding as above Active Medications Hydrocodone Bitart/Acetaminophen ([place] 7.5-325) 1 each PO Q6H PRN PRN Reason: Pain Scale 1 to 5 Hydrocodone Bitart/Acetaminophen ([place] 7.5-325) 2 each PO Q6H PRN PRN Reason: Pain Scale 6 to 10 Last Admin: 01/25/19 14:41 Dose: 2 each Documented by: Apixaban (Eliquis) 5 mg PO BID [facility] Last Admin: 01/25/19 20:05 Dose: 5 mg Documented by: Carbidopa/Levodopa (Sinemet 25-100) 2 each PO HS [facility] Last Admin: 01/25/19 20:06 Dose: 2 each Documented by: Diazepam (Valium) 2.5 mg PO Q8HR PRN PRN Reason: Mild Spasms Diltiazem HCl (Cardizem Cd) 180 mg PO DAILY [facility] Last Admin: 01/25/19 08:10 Dose: 180 mg Documented by: Duloxetine HCl (Cymbalta) 60 mg PO BID [facility] Last Admin: 01/25/19 20:06 Dose: 60 mg Documented by: Ferrous Sulfate (Feosol) 325 mg PO DAILY [facility] Last Admin: 01/25/19 08:09 Dose: 325 mg Documented by: Gabapentin (Neurontin) 600 mg PO HS [facility] Last Admin: 01/25/19 20:05 Dose: 600 mg Documented by: Hydromorphone HCl (Dilaudid) 0.25 mg IVP Q3HR PRN PRN Reason: Pain Scale 1 to 3 Hydromorphone HCl (Dilaudid) 1 mg IVP Q3HR PRN PRN Reason: Pain Scale 7 to 10 Last Admin: 01/24/19 07:49 Dose: 1 mg Documented by: Hydromorphone HCl (Dilaudid) 0.5 mg IVP Q3HR PRN PRN Reason: Pain Scale 4 to 6 Last Admin: 01/22/19 20:27 Dose: 0.5 mg Documented by: Hydroxyzine Pamoate (Vistaril) 25 mg PO Q4HR PRN PRN Reason: Nausea, Anxiety, Pain Control Last Admin: 01/23/19 14:13 Dose: 25 mg Documented by: Sodium Chloride (Saline 0.9%) 1,000 mls @ 70 mls/hr IV .[id number] [facility] Last Admin: 01/25/19 23:52 Dose: Not Given Documented by: Sodium Chloride (Saline 0.9%) 1,000 mls @ 70 mls/hr IV .[id number] [facility] Last Admin: 01/25/19 08:10 Dose: Not Given Documented by: Levothyroxine Sodium (Synthroid) 150 mcg PO DAILY@0630 [facility] Last Admin: 01/25/19 06:00 Dose: 150 mcg Documented by: Magnesium Hydroxide (Milk Of Magnesia) 2,400 mg PO DAILY PRN PRN Reason: Constipation Naloxone HCl (Narcan) 0.2 mg IV Q2M PRN PRN Reason: Opioid Reversal Ondansetron HCl (Zofran) 4 mg IVP Q8H PRN PRN Reason: Nausea And Vomiting Last Admin: 01/23/19 11:26 Dose: 4 mg Documented by: Ropinirole HCl (Requip) 4 mg PO [facility] Last Admin: 01/25/19 20:05 Dose: 4 mg Documented by: Senna/Docusate Sodium (Senokot-S) 2 each PO [facility] Last Admin: 01/25/19 20:06 Dose: Not Given Documented by: Triamterene/HCTZ (Dyazide) 1 each PO DAILY [facility] Last Admin: 01/25/19 08:10 Dose: 1 each Documented by: Physical examination: VITAL SIGNS: 97.6, 90, 16, 100/65, 95% room air GENERAL: Sitting up in a chair comfortable EYES: Pupils equal. Conjunctiva normal. HEENT: External appearance of nose and ears normal, oral cavity grossly normal. NECK: JVD not raised; masses not palpable. HEART: First and second heart sounds are normal; no edema. LUNGS: Respiratory rate normal; clear to auscultation. ABDOMEN: Soft, nontender, liver spleen not palpable, no masses palpable. PSYCH: Alert and oriented x3; mood and affect normal. MUSCULOSKELETAL: Evidence of OA in the hands, INVESTIGATIONS, reviewed in the clinical context: Hemoglobin 7.9 Previous testing White count 4.8 hemoglobin 10.9 platelets 346 hemoglobin on December 28 was 12 creatinine 0.75 Assessment: -Left hip periprosthetic fracture in a patient who hip was replaced on December 27. Today underwent revision of the left hip arthroplasty and ORIF of the periprosthetic fracture. 50% weightbearing on the left lower extremity. -Acute muscle spasm left leg, improved -Persistent atrial fibrillation, chronically on eliquis -Essential hypertension -Obstructive sleep apnea uses CPAP machine -Hypothyroid -Anxiety depression otherwise specified -Morbid obesity BMI 50.6 -Acute postop blood loss anemia, expected from surgery Plan: Start the patient on iron supplementation. Other medications to continue. Patient's 50% weightbearing on the left leg. Repeat CBC in the morning. Thank you Dr. Henderson
[2019-01-26] MEDS: LEVOTHYROXINE 75 MCG TAB PO SCH (05:50)
[2019-01-26] MEDS: HYDROcodone/APAP 7.5-325MG 1 EACH TAB PO PRN ×2 (05:52→17:56)
--- NOTE | 2019-01-26 08:28 | P.PN ---
Subjective Progress Note Date: 01/26/19 This is an 83-year-old female who is status post open reduction and internal fixation periprosthetic fracture left hip and revision left total hip arthroplasty. This is postoperative day #3 and patient is seen and evaluated at bedside with Dr. Everardo Henderson. Patient states that she has been up and walking with physical therapy. Patient does admit to some dizziness upon sta nding. Patient denies any fever/chills, numbness, weakness, tingling, abdominal pain, shortness of breath or chest pain. Objective - Vital Signs Vital signs: Vital Signs Temp 97.9 F 01/26/19 07:18 Pulse 79 01/26/19 07:18 Resp 17 01/26/19 07:18 BP 97/62 01/26/19 07:18 Pulse Ox 94 L 01/26/19 07:18 Intake & Output 01/25/19 01/26/19 01/26/19 18:59 06:59 18:59 Intake Total 400 Output Total 1300 Balance -1300 400 Intake: Oral 400 Output: Urine 1300 Other: Voiding Method Bedside Commode # Voids 1 1 # Bowel Movements 1 - Exam Vital signs are stable. Patient is in no acute distress and is alert and oriented 3. Calf is soft and nontender to palpation. Dressing is clean, dry, and intact. Patient has full foot and ankle motion without pain or difficulty. Neurovascular status and circulatory status are intact. - Labs CBC & Chem 7: 01/25/19 08:13 01/20/19 16:52 Labs: Abnormal Lab Results - Last 24 Hours (Table) 01/25/19 Range/Units 08:13 RBC 2.57 L (3.80-5.40) m/uL Hgb 7.9 L D (11.4-16.0) gm/dL Hct 25.1 L (34.0-46.0) % Assessment and Plan Assessment: Atrial fibrillation Hstory of uterine cancer Hypertension Osteoarthritis Sleep apnea (1) Periprosthetic fracture around internal prosthetic left hip joint Current Visit: Yes Status: Acute Code(s): M97.02XA - PERIPROSTH FRACTURE AROUND INTERNAL PROSTH L HIP JT, INIT SNOMED Code(s): 125028383 (2) Status post total hip replacement, left Current Visit: No Status: Acute Code(s): Z96.642 - PRESENCE OF LEFT ARTIFICIAL HIP JOINT SNOMED Code(s): 344549087510 Plan: Continue routine postop care and pain control. Hemoglobin is 7.9. Awaiting repeat CBC. Continue hip precautions with abductor pillow x6 weeks. Continue anticoagulation with Eliquis. 50% weightbearing to the left lower extremity with a walker. Daily dressing changes. [place] to be removed in 10-14 days postoperatively. Appreciate input from medicine. Likely discharge to rehab in the next 24-48 hours.
[2019-01-26] MEDS: APIXABAN 5 MG TAB PO SCH (08:48)
[2019-01-26] MEDS: TRIAMTERENE-HCTZ 37.5-25MG 1 EACH CAP PO SCH (08:48)
[2019-01-26] MEDS: DULoxetine HCL 60 MG CAPSULE.DR PO SCH (08:48)
[2019-01-26] MEDS: FERROUS SULFATE 325 MG TAB PO SCH (08:48)
[2019-01-26] MEDS: SODIUM CHLORIDE 0.9% 1,000 ML IV SCH (08:48)
[2019-01-26] MEDS: DILTIAZEM CD 180 MG CAP.ER.24H PO SCH (08:48)
[2019-01-26 09:30] LABS: Basophils % (A) 0 %; Eosinophils # (A) 0.7 k/uL (0-0.7); Eosinophils % (A) 8 %; HCT 23.3 % (34.0-46.0); HGB 7.5 gm/dL (11.4-16.0); Hypochromasia Slight; Lymphocytes # (A) 0.8 k/uL (1.0-4.8); Lymphocytes % (A) 10 %; MCV 97.1 fL (80.0-100.0); Mean Platelet Volume 6.2; Monocytes # (A) 0.3 k/uL (0-1.0); Monocytes % (A) 4 %; Neutrophils # (A) 6.2 k/uL (1.3-7.7); Neutrophils % (A) 77 %; Platelet Count 305 k/uL (150-450); RDW 13.4 % (11.5-15.5)
[2019-01-26 14:32] VITALS: RESP 16
--- NOTE | 2019-01-26 15:15 | P.DS ---
Providers Date of admission: 01/20/19 15:18 Expected date of discharge: 01/26/19 Attending physician: Everardo Henderson Consults: 01/20/19 15:57 Consult Physician Routine Consulting Provider: Nader Chan Consult Reason/Comments: medical clearance/management Do you want consulting provider notified?: Yes Primary care physician: Adriana Rose - Discharge Diagnosis(es) (1) Periprosthetic fracture around internal prosthetic left hip joint Current Visit: Yes Status: Acute (2) Status post total hip replacement, left Current Visit: No Status: Acute Hospital Course: This is a 63-year-old female who was admitted for periprosthetic fracture of the left hip. Patient underwent direct anterior approach left total hip arthroplasty on 12/27/[address] Everardo Henderson. Patient presented as an outpatient on 01/20/2019 for routine post op follow up and x-rays revealed a periprosthetic fracture of the left hip. Patient denies any known injury or trauma to the left hip. After discussion and consideration patient elects to proceed with open reduction and internal fixation periprosthetic fracture left hip and revision left total hip arthroplasty. The patient is seen preoperatively by Dr. Henderson and medically cleared for surgery by an internal medicine. Patient is admitted to [facility] on 01/20/2019 and open reduction and internal fixation periprosthetic fracture left hip and revision left total hip arthroplasty is performed on 01/23/2019. The procedures performed without complication or sequelae. The patient is doing well postoperatively. Patient received one unit of blood due to postoperative anemia. Labs and vital signs are stable on day of discharge. On day of discharge patient's hip incision is healing well. There is minimal erythema. There is mild drainage noted at this time. There is minimal soft tissue swelling to the hip and thigh. Patient has full foot and ankle motion without difficulty or pain. Calf is soft and nontender to palpation. Neurovascular status to the left lower extremity is intact. Patient is discharged to rehab in good condition. Opioid start talking form is reviewed and signed at patient bedside. Please see med rec for accurate list of home medications. Plan - Discharge Summary Discharge Rx Participant: Yes New Discharge Prescriptions: New Apixaban [Eliquis] 5 mg PO BID 30 Days #60 tab HYDROcodone/APAP 7.5-325MG [[place] 7.5-325] 1 - 2 tab PO Q6H PRN #56 tab PRN Reason: Pain Sennosides [Senokot] 1 tab PO BID #60 tablet Continue Levothyroxine Sodium 150 mcg PO DAILY Apixaban [Eliquis] 5 mg PO BID DULoxetine HCL [Cymbalta] 60 mg PO BID Diltiazem HCl [Cardizem LA] 180 mg PO DAILY Ferrous Sulfate [Iron (65 MG Elemental)] 325 mg PO DAILY rOPINIRole HCL [Requip] 4 mg PO HS Multivitamins, Thera [Multivitamin (formulary)] 1 tab PO DAILY Carbidopa-Levodopa 25-100 mg [Sinemet 25-100 mg] 2 tab PO HS Calcium Carbonate/Vitamin D3 [Calcium 500-Vit D3 600 Tablet] 1 tab PO DAILY Sennosides [Senokot] 1 tab PO BID PRN PRN Reason: Constipation Gabapentin [Neurontin] 600 mg PO HS #3 tab Diazepam [Valium] 5 mg PO TID PRN #10 tab PRN Reason: Muscle Spasm Discontinued HYDROcodone/APAP 5-325MG [[place] 5-325] 1 - 2 tab PO Q6HR PRN #56 tab PRN Reason: Pain Ibuprofen [Motrin] 800 mg PO BID Triamterene-Hctz 37.5-25Mg [Dyazide 37.5-25 Capsule] 1 cap PO DAILY Discharge Medication List Apixaban [Eliquis] 5 mg PO BID 12/21/18 [History] Carbidopa-Levodopa 25-100 mg [Sinemet 25-100 mg] 2 tab PO HS 12/21/18 [History] DULoxetine HCL [Cymbalta] 60 mg PO BID 12/21/18 [History] Diltiazem HCl [Cardizem LA] 180 mg PO DAILY 12/21/18 [History] Ferrous Sulfate [Iron (65 MG Elemental)] 325 mg PO DAILY 12/21/18 [History] Levothyroxine Sodium 150 mcg PO DAILY 12/21/18 [History] Multivitamins, Thera [Multivitamin (formulary)] 1 tab PO DAILY 12/21/18 [History] rOPINIRole HCL [Requip] 4 mg PO HS 12/21/18 [History] Calcium Carbonate/Vitamin D3 [Calcium 500-Vit D3 600 Tablet] 1 tab PO DAILY 01/20/19 [History] Sennosides [Senokot] 1 tab PO BID PRN 01/20/19 [History] Apixaban [Eliquis] 5 mg PO BID 30 Days #60 tab 01/25/19 [Rx] HYDROcodone/APAP 7.5-325MG [[place] 7.5-325] 1 - 2 tab PO Q6H PRN #56 tab 01/25/19 [Rx] Sennosides [Senokot] 1 tab PO BID #60 tablet 01/25/19 [Rx] Diazepam [Valium] 5 mg PO TID PRN #10 tab 01/26/19 [Rx] Gabapentin [Neurontin] 600 mg PO HS #3 tab 01/26/19 [Rx] Follow up Appointment(s)/Referral(s): Everardo Henderson DO [Doctor of Osteopathic Medicine] - 02/09/19 2:30 pm Activity/Diet/Wound Care/Special Instructions: 50% weightbearing to the left lower extremity with walker. May shower after 2 days if no drainage from the incision. Continue use of abductor pillow x6 weeks. [place] to be removed 14 days postoperatively. Recommend use of compression stockings daily for at least 2 weeks during the day to help prevent swelling and blood clots. May remove at night before sleeping. Please follow-up with [facility] in 2 weeks and call with any questions or concerns,
[2019-01-26 16:59] VITALS: BP 114/66; TEMP 98.4
[2019-01-26 17:36] VITALS: PULSE 84
[2019-01-26] MEDS ORDERED: HYDROcodone/APAP 7.5-325MG 1 EACH TAB PO ONE (18:00)
--- NOTE | 2019-01-27 00:34 | P.PN ---
Progress Note - Text Progress Note Date: 01/26/19 Interval history: This is a very pleasant 63-year-old patient who follows with Dr. Melissa Rose. Elizabet valdez stable medical conditions include atrial fibrillation, hypertension, obstructive sleep apnea uses CPAP machine, hypothyroid, anxiety depression. Patient does take eliquis. On December 27 patient underwent left total hip arthroplasty. Was doing well and discharged home. With home therapy. For 2 weeks patient been noticing increasing spasm in the left lower extremity and the hip area. Had been able to continue with therapy. Does no trauma. No fever no chills. Pain was worse with activity better with rest. Decided to come in. X- ray confirmed patient about periprosthetic fracture.(This was done at the outside hospital in [place]) Eliquis has been held with a view to proceed with surgery in 48 hours. No chest pain or shortness of breath. Surgical intervention on January 31. Today-no new issues. To drop her hemoglobin. We'll transfuse one blood. Breathing is stable. Did tolerate her meals. Did work with therapy. Review of systems: Was done for constitutional, cardiovascular, GI, pulmonary. Musculoskeletal, relevant finding as above current medications are reviewed from today's electronic records Physical examination: VITAL SIGNS: 98.4, 79, 18, 128/62, 94% room air GENERAL: Sitting up in a chair comfortable EYES: Pupils equal. Conjunctiva normal. HEENT: External appearance of nose and ears normal, oral cavity grossly normal. NECK: JVD not raised; masses not palpable. HEART: First and second heart sounds are normal; no edema. LUNGS: Respiratory rate normal; clear to auscultation. ABDOMEN: Soft, nontender, liver spleen not palpable, no masses palpable. PSYCH: Alert and oriented x3; mood and affect normal. MUSCULOSKELETAL: Evidence of OA in the hands, INVESTIGATIONS, reviewed in the clinical context: hemoglobin 7.5 Previous testing White count 4.8 hemoglobin 10.9 platelets 346 hemoglobin on December 28 was 12 creatinine 0.75 Assessment: -Left hip periprosthetic fracture in a patient who hip was replaced on December 27. Today underwent revision of the left hip arthroplasty and ORIF of the periprosthetic fracture. 50% weightbearing on the left lower extremity. -Acute muscle spasm left leg, improved -Persistent atrial fibrillation, chronically on eliquis -Essential hypertension -Obstructive sleep apnea uses CPAP machine -Hypothyroid -Anxiety depression otherwise specified -Morbid obesity BMI 50.6 -Acute postop blood loss anemia, expected from surgery, patient was hypotensive this morning,has one unit of blood is being given Plan: patient otherwise doing well. We'll get 1 unit of blood to be discharged after that. Care was discussed with the patient.. Thank you Dr. Henderson
--- NOTE | 2019-01-28 10:22 | P.PN ---
Progress Note - Text Progress Note Date: 01/28/19 (Addendum to the operative note from 01/23/19) In the third paragraph of the operative note there is a typo. The sentence that reads "An intraoperative x-ray was performed at shoulder fracture" should read "An intraoperative x-ray showed the fracture reduced in good postion and alignment as well as good position of the femoral component"
== END 2019-01-26 18:06 | DRG 467 ==
LOC: 4SSUR 15:18 → UNDODISIN 01-26 17:45
PROVIDERS: ADMIT Orthopaedic Surgery; ATTEND Orthopaedic Surgery
PROC: 0SPS0JZ Removal of Synthetic Substitute from Left Hip Joint, Femoral Surface, Open Approach (ICD-10-PCS; 2019-01-23)
PROC: 0QS704Z Reposition Left Upper Femur with Internal Fixation Device, Open Approach (ICD-10-PCS; 2019-01-23)
PROC: 0SRS01A Replacement of Left Hip Joint, Femoral Surface with Metal Synthetic Substitute, Uncemented, Open Approach (ICD-10-PCS; principal; 2019-01-23 08:00)
PROC: 30233N1 Transfusion of Nonautologous Red Blood Cells into Peripheral Vein, Percutaneous Approach (ICD-10-PCS; 2019-01-26)
DX: M97.02XA Periprosthetic fracture around internal prosthetic left hip joint, initial encounter (principal); I48.19 Other persistent atrial fibrillation; D62 Acute posthemorrhagic anemia; Z68.43 Body mass index [BMI] 50.0-59.9, adult; I95.9 Hypotension, unspecified; E66.01 Morbid (severe) obesity due to excess calories; E03.9 Hypothyroidism, unspecified; F41.9 Anxiety disorder, unspecified; F32.9 Major depressive disorder, single episode, unspecified; G25.81 Restless legs syndrome; G47.33 Obstructive sleep apnea (adult) (pediatric); I10 Essential (primary) hypertension; M19.90 Unspecified osteoarthritis, unspecified site; M62.838 Other muscle spasm; Z79.01 Long term (current) use of anticoagulants; Z79.890 Hormone replacement therapy; Z79.899 Other long term (current) drug therapy; Z88.5 Allergy status to narcotic agent; Z90.710 Acquired absence of both cervix and uterus; Z85.42 Personal history of malignant neoplasm of other parts of uterus; Z96.641 Presence of right artificial hip joint; Z98.84 Bariatric surgery status; Z80.1 Family history of malignant neoplasm of trachea, bronchus and lung
CPT/HCPCS: 73501; 80048; 81003; 85025; 85610; 85730; 86850; 86900; 86901; 86920; 94760

== ENCOUNTER 2019-10-06 17:18 | Inpatient (IN) | payer MEDICARE, BC ==
--- NOTE | 2019-10-06 18:21 | ED ---
Recheck HPI - General Chief Complaint: Extremity Problem,Nontraumatic Stated Complaint: LT hip pain Time Seen by Provider: 10/06/19 17:28 Source: patient, RN notes reviewed, old records reviewed Mode of arrival: EMS Limitations: no limitations - History of Present Illness Initial Comments: This is a 64-year-old female DF for evaluation patient accepted evaluation of transfer. Patient is transferred to our hospital with a postop of the left hip left hip pain severe will not left hip infection. Patient is persistent has adequate pain control without when she has not that left MD Complaint: other (Left hip pain) -: days(s) Returns Today for: persistent/worsening pain related to initial visit Symptoms Since Prior Visit: worsening pain, fever Associated Symptoms: fever - Related Data Home Medications Medication Instructions Recorded Confirmed Apixaban [Eliquis] 5 mg PO BID 12/21/18 01/20/19 Carbidopa-Levodopa 25-100 mg 2 tab PO HS 12/21/18 01/20/19 [Sinemet 25-100 mg] DULoxetine HCL [Cymbalta] 60 mg PO BID 12/21/18 01/20/19 Diltiazem HCl [Cardizem LA] 180 mg PO DAILY 12/21/18 01/20/19 Ferrous Sulfate [Iron (65 MG 325 mg PO DAILY 12/21/18 01/20/19 Elemental)] Levothyroxine Sodium 150 mcg PO DAILY 12/21/18 01/20/19 Multivitamins, Thera [Multivitamin 1 tab PO DAILY 12/21/18 01/20/19 (formulary)] rOPINIRole HCL [Requip] 4 mg PO HS 12/21/18 01/20/19 Calcium Carbonate/Vitamin D3 1 tab PO DAILY 01/20/19 01/20/19 [Calcium 500-Vit D3 600 Tablet] Sennosides [Senokot] 1 tab PO BID PRN 01/20/19 01/20/19 Previous Rx's Medication Instructions Recorded Apixaban [Eliquis] 5 mg PO BID 30 Days #60 tab 01/25/19 HYDROcodone/APAP 7.5-325MG [[place] 1 - 2 tab PO Q6H PRN #56 tab 01/25/19 7.5-325] Sennosides [Senokot] 1 tab PO BID #60 tablet 10/22/19 Diazepam [Valium] 5 mg PO TID PRN #10 tab 01/26/19 Gabapentin [Neurontin] 600 mg PO HS #3 tab 01/26/19 Allergies Allergy/AdvReac Type Severity Reaction Status Date / Time codeine AdvReac Nausea & Verified 01/20/19 17:19 Vomiting Review of Systems ROS Statement: Those systems with pertinent positive or pertinent negative responses have been documented in the HPI. ROS Other: All systems not noted in ROS Statement are negative. Past Medical History Past Medical History: Atrial Fibrillation, Cancer, Hypertension, Osteoarthritis (OA), Sleep Apnea/CPAP/BIPAP Additional Past Medical History / Comment(s): uses cpap,hx uterine CA-no chemo or radiation History of Any Multi-Drug Resistant Organisms: None Reported Past Surgical History: Hysterectomy, Joint Replacement, Orthopedic Surgery Additional Past Surgical History / Comment(s): rt hip repacement,paulie en y,left thumb jt arthroplasty,carpel tunnel release solo,micro discectomy L4-L5, left hip replacement, restless leg Past Anesthesia/Blood Transfusion Reactions: No Reported Reaction, Motion Sickness Additional Past Anesthesia/Blood Transfusion Reaction / Comment(s): no problems with prior blood transfusion Past Psychological History: Anxiety, Depression Smoking Status: Never smoker Past Alcohol Use History: None Reported Past Drug Use History: None Reported - Past Family History Mother Family Medical History: Cancer Additional Family Medical History / Comment(s): lung CA General Exam Limitations: no limitations General appearance: alert, in no apparent distress Head exam: Present: atraumatic, normocephalic, normal inspection Eye exam: Present: normal appearance, PERRL, EOMI. Absent: scleral icterus, conjunctival injection, periorbital swelling ENT exam: Present: normal exam, mucous membranes moist Neck exam: Present: normal inspection. Absent: tenderness, meningismus, lymphadenopathy Respiratory exam: Present: normal lung sounds bilaterally. Absent: respiratory distress, wheezes, rales, rhonchi, stridor Cardiovascular Exam: Present: regular rate, normal rhythm, normal heart sounds. Absent: systolic murmur, diastolic murmur, rubs, gallop, clicks GI/Abdominal exam: Present: soft, normal bowel sounds. Absent: distended, tenderness, guarding, rebound, rigid Extremities exam: Present: normal inspection, full ROM, normal capillary refill. Absent: tenderness, pedal edema, joint swelling, calf tenderness Back exam: Present: normal inspection Neurological exam: Present: alert, oriented X3, CN II-XII intact Psychiatric exam: Present: normal affect, normal mood Skin exam: Present: warm, dry, intact, normal color. Absent: rash Course Vital Signs 10/06/19 10/06/19 17:35 18:21 Temperature 98.7 F Pulse Rate 97 98 Respiratory 18 16 Rate Blood Pressure 104/53 94/54 O2 Sat by Pulse 95 98 Oximetry - Reevaluation(s) Reevaluation #1: 10/06/19 18:32 Medical record is reviewed Reevaluation #2: 10/06/19 18:32 Transferring paperwork record is reviewed he has Reevaluation #3: 10/06/19 18:32 She has significant pain control currently not requiring further pain medication - Consultations Consultation #1: Spoke with Dr. Rajeev price for admission Medical Decision Making - Medical Decision Making 64 female DF for evaluation left hip pain severe. Patient be admitted rule out septic arthritis, pain control Disposition Clinical Impression: Osteoarthritis of left hip, Status post total hip replacement, left Narrative: r/o Septic Arthritis Disposition: ADMITTED IP TO THIS HOSP Condition: Good Is patient prescribed a controlled substance at d/c from ED?: No Referrals: Adriana Rose MD [Primary Care Provider] - 1-2 days
[2019-10-06 18:23] VITALS: RESP 16
[2019-10-06] MEDS ORDERED: VANCOMYCIN IV PER PHARMACY 1 EACH MISC MISCELLANE PRN (18:29)
[2019-10-06] MEDS ORDERED: MORPHINE SULFATE 4 MG/ML SYRINGE IVP STA (18:29)
[2019-10-06] MEDS ORDERED: SODIUM CHLORIDE 0.9% 1,000 ML IV ONE (18:29)
[2019-10-06] MEDS ORDERED: MORPHINE SULFATE 4 MG/ML SYRINGE IVP PRN (18:29)
[2019-10-06] MEDS ORDERED: VANCOMYCIN 2,000 MG in SODIUM CHLORIDE 0.9% 500 ML 500 ML IVPB ONE (18:45)
[2019-10-06] MEDS ORDERED: DIAZEPAM 5 MG/ML 2 ML INJ IVP STA (19:08)
[2019-10-06] MEDS ORDERED: DIAZEPAM 5 MG/ML 2 ML INJ IVP PRN (19:08)
[2019-10-06] MEDS ORDERED: HYDROmorphone 1 MG/ML 1 ML SYRINGE IVP PRN (22:17)
[2019-10-06] MEDS ORDERED: KETOROLAC 30 MG/ML 1 ML VIAL IVP PRN (22:17)
[2019-10-06] MEDS ORDERED: TEMAZEPAM 15 MG CAP PO PRN (22:19)
[2019-10-06] MEDS ORDERED: LORazepam 0.5 MG TAB PO PRN (22:19)
[2019-10-06] MEDS ORDERED: HYDROcodone/APAP 7.5-325MG 1 EACH TAB PO PRN (22:34)
[2019-10-06] MEDS: HYDROmorphone 0.5 MG/0.5 ML SYRINGE IVP PRN (23:04)
--- NOTE | 2019-10-06 23:14 | HP ---
HISTORY AND PHYSICAL DATE OF SERVICE: 10/06/2019 CHIEF COMPLAINT: Left hip pain. HISTORY OF PRESENT ILLNESS: This 64-year-old woman with a past medical history of multiple medical problems, including history of DJD, history of atrial fibrillation, history of hypertension, history of sleep apnea, history of hysterectomy, being followed by Dr. Adriana Rose in the outpatient setting, had left hip replacement and subsequently periprosthetic fracture last year. Currently the patient is complaining of severe left hip pain and left thigh pain and some spasms. Patient went to [facility] and extensive evaluation was done. The patient had intractable pain and the patient was subsequently referred to [facility] after talking with Dr. Henderson. The possibility of infection was suspected. There is nohistory of any fever, rigor or chills. No history of headache, loss of consciousness, seizures. Empiric antibiotics have been initiated. The patient also has some redness of the knee areas and warmth also. PAST MEDICAL HISTORY: History of atrial fibrillation, history of hypertension, history of DJD, sleep apnea. Surgeries as mentioned earlier. HOME MEDICATIONS: Requip, Dyazide, multivitamins, levothyroxine, ibuprofen, hydrocodone, Neurontin, iron, diltiazem, Dulcolax, carbidopa L-dopa, apixaban. Doses are reviewed. ALLERGIES: CODEINE. FAMILY HISTORY: History of lung cancer in the family. SOCIAL HISTORY: No history of smoking. No history of alcohol intake. REVIEW OF SYSTEMS: ENT: No diminished hearing. No diminished vision. CARDIOVASCULAR SYSTEM: As mentioned earlier. RESPIRATORY SYSTEM: As mentioned earlier. GI: No nausea, vomiting. : No dysuria or retention. NERVOUS SYSTEM: No numbness, weakness. ALLERGY/IMMUNOLOGY: No asthma, hayfever. MUSCULOSKELETAL: As mentioned earlier. HEMATOLOGY/ONCOLOGY: No history of anemia. ENDOCRINE: As mentioned earlier. CONSTITUTIONAL: As mentioned earlier. DERMATOLOGY: Negative. RHEUMATOLOGY: Negative. PSYCHIATRY: As mentioned earlier. PHYSICAL EXAMINATION: Patient alert and x3. Pulse 98, blood pressure 94/54, respirations 16, temperature 98.7, pulse ox 98% on room air. HEENT: Conjunctivae normal. Oral mucosa moist. NECK: No jugular venous distention. No carotid bruit. No lymph node enlargement. CARDIOVASCULAR SYSTEM: S1, S2 muffled. No S3. No S4. RESPIRATORY SYSTEM: Breath sounds diminished at the bases. A few rhonchi. No crackles. ABDOMEN: Soft, obese, non-tender. LEGS: Significant pain and swelling of the left leg and left knee is also warm. Movements are painful. LABS: Labs are reviewed. Sodium is 131. Lactic acid elevated. ASSESSMENT: 1. Significant left hip pain and gait dysfunction. Rule out left hip infection. 2. History of left hip replacement and periprosthetic fracture and revision. 3. Gait dysfunction, severe. 4. Severe pain, uncontrollable, and failure of outpatient treatment. 6. Atrial fibrillation. 7. History of hypertension. 8. History of degenerative joint disease. 9. Sleep apnea. 10.History of CPAP. 11.History of uterine cancer. 12.History of motion sickness. 13.History of anxiety, depression. 14.Obesity with body mass index of 50.5. RECOMMENDATIONS AND DISCUSSION: In this 64-year-old woman who presented with multiple complex medical issues, we will monitor the patient closely, continue the current medications, continue symptomatic treatment. Will initiate significant pain control measures. Repeat labs. Will also consult Infectious Disease . Orthopedics also will be consulted. Will obtain cultures. Empiric antibiotics. DVT prophylaxis. Overall prognosis is extremely guarded because of multiple complex medical issues. Further recommendations to follow. I would also recommend a CT scan of the abdomen and pelvis to complete the workup. A copy of this dictation is being forwarded to Dr. Adriana Rose, who is the primary physician. MMASIML / EUSEBION: [id number] / MTDD
--- NOTE | 2019-10-06 23:20 | XR ---
EXAMINATION TYPE: XR chest 1V portable DATE OF EXAM: 10/06/2019 COMPARISON: None HISTORY: Possible infection TECHNIQUE: FINDINGS: There is some linear density in the right midlung. There is no heart failure. There appears to be some consolidation at the right posterior lung base and the diaphragm. Left lung is clear. The re is no definite pleural effusion. IMPRESSION: There is evidence for some consolidation in the right lower lobe. No heart failure seen. Limited exam.
[2019-10-06 23:36] LABS: Albumin 3.4 g/dL (3.5-5.0); Calcium 8.6 mg/dL (8.4-10.2); Potassium 3.9 mmol/L (3.5-5.1); Total Bilirubin 0.7 mg/dL (0.2-1.3); Total Protein 6.2 g/dL (6.3-8.2)
[2019-10-07] MEDS ORDERED: VANCOMYCIN 2,000 MG in SODIUM CHLORIDE 0.9% 500 ML 500 ML IVPB SCH ×2 (05:00→21:00)
[2019-10-07] MEDS: HYDROmorphone 0.5 MG/0.5 ML SYRINGE IVP PRN ×6 (05:01→20:22)
[2019-10-07 05:33] LABS: Appearance,Urine Cloudy (Clear); Bacteria,Urine Rare /hpf; Bilirubin,Urine Negative (Negative); Blood,Urine Moderate (Negative); Color,Urine Yellow; Glucose,Urine (UA) Negative (Negative); Granular Casts,Urine 1 /lpf (0); Ketones,Urine Negative (Negative); Leukocyte Esterase,Urine Negative (Negative); Mucus,Urine Rare /hpf; Nitrite,Urine Negative (Negative); PH, Urine 5.5 (5.0-8.0); Protein,Urine 1+ (Negative); RBC,Urine >182 /hpf (0-5); Renal Epithelial Cells,Urine 5 /hpf (0); Specific Gravity,Urine 1.028 (1.001-1.035); Squamous Epithelial Cell,Urine 1 /hpf (0-4); Urobilinogen,Urine <2.0 mg/dL (<2.0); WBC,Urine 6 /hpf (0-5)
[2019-10-07] MEDS ORDERED: LEVOTHYROXINE 100 MCG TAB PO SCH (06:30)
[2019-10-07] MEDS ORDERED: DULoxetine HCL 60 MG CAPSULE.DR PO SCH (09:00)
[2019-10-07] MEDS ORDERED: TRIAMTERENE-HCTZ 37.5-25MG 1 EACH CAP PO SCH (09:00)
[2019-10-07] MEDS ORDERED: FERROUS SULFATE 325 MG TAB PO SCH (09:00)
[2019-10-07] MEDS ORDERED: CALCIUM CARB-VIT D 500MG-200UN 1 EACH TAB PO SCH (09:00)
[2019-10-07] MEDS ORDERED: DILTIAZEM CD 180 MG CAP.ER.24H PO SCH (09:00)
[2019-10-07] MEDS ORDERED: APIXABAN 5 MG TAB PO SCH (09:00)
[2019-10-07] MEDS ORDERED: MULTIVITAMINS, THERA 1 EACH TAB PO SCH (09:00)
[2019-10-07 09:20] LABS: Basophils % (A) 0 %; Eosinophils # (A) 0.1 k/uL (0-0.7); Eosinophils % (A) 1 %; HCT 37.8 % (34.0-46.0); HGB 11.6 gm/dL (11.4-16.0); Hypochromasia Slight; Lymphocytes # (A) 0.9 k/uL (1.0-4.8); Lymphocytes % (A) 7 %; MCH 29.6 pg (25.0-35.0); MCHC 30.7 g/dL (31.0-37.0); MCV 96.5 fL (80.0-100.0); Mean Platelet Volume 8.5; Monocytes # (A) 0.5 k/uL (0-1.0); Monocytes % (A) 4 %; Neutrophils # (A) 12.3 k/uL (1.3-7.7); Neutrophils % (A) 87 %; Platelet Count 195 k/uL (150-450); RBC 3.92 m/uL (3.80-5.40)
[2019-10-07 09:29] LABS: African American GFR (CKD) >90 (>60 ml/min/1.73 sqM); Anion Gap 8 mmol/L; Blood Urea Nitrogen 34 mg/dL (7-17); Calcium 8.4 mg/dL (8.4-10.2); Carbon Dioxide 23 mmol/L (22-30); Chloride 102 mmol/L (98-107); Glucose 127 mg/dL (74-99); Non-African American GFR(CKD) 83 (>60 ml/min/1.73 sqM); Potassium 3.9 mmol/L (3.5-5.1); Sodium 133 mmol/L (137-145)
--- NOTE | 2019-10-07 13:53 | P.CRDCN ---
History of Present Illness Consult date: 10/07/19 History of present illness: This is a 64-year-old female with history of degenerative joint disease, history of hypertension who was admitted to the hospital with left hip pain. This patient had multiple surgeries bilaterally for hip problems. There is possible infection suspected regarding her left hip problem. Patient had history of SVT and also paroxysmal atrial fibrillation. 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 Patient had 2 cardiac catheterizations which were normal. An episode of SVT requiring IV adenosin few months ago. Currently she is in sinus rhythm. Denies any chest pain or shortness of breath. She may be transferred to [facility] for further evaluation of hip pain Review of Systems As per the chart Past Medical History Past Medical History: Atrial Fibrillation, Cancer, Hypertension, Osteoarthritis (OA), Sleep Apnea/CPAP/BIPAP Additional Past Medical History / Comment(s): uses cpap,hx uterine CA-no chemo or radiation, restless legs History of Any Multi-Drug Resistant Organisms: None Reported Past Surgical History: Hysterectomy, Joint Replacement, Orthopedic Surgery Additional Past Surgical History / Comment(s): rt hip repacement,paulie en y,left thumb jt arthroplasty,carpel tunnel release solo,micro discectomy L4-L5, left hip replacement Past Anesthesia/Blood Transfusion Reactions: No Reported Reaction Additional Past Anesthesia/Blood Transfusion Reaction / Comment(s): no problems with prior blood transfusion Past Psychological History: Anxiety, Depression Smoking Status: Never smoker Past Alcohol Use History: None Reported Past Drug Use History: None Reported - Past Family History Mother Family Medical History: Cancer Additional Family Medical History / Comment(s): lung CA Medications and Allergies Home Medications Medication Instructions Recorded Confirmed Type Carbidopa-Levodopa 25-100 mg 2 tab PO HS 12/21/18 10/06/19 History [Sinemet 25-100 mg] DULoxetine HCL [Cymbalta] 60 mg PO BID 12/21/18 10/06/19 History Diltiazem HCl [Cardizem LA] 180 mg PO DAILY 12/21/18 10/06/19 History Ferrous Sulfate [Iron (65 MG 325 mg PO DAILY 12/21/18 10/06/19 History Elemental)] Levothyroxine Sodium 150 mcg PO DAILY 12/21/18 10/06/19 History Multivitamins, Thera [Multivitamin 1 tab PO DAILY 12/21/18 10/06/19 History (formulary)] Calcium Carbonate/Vitamin D3 2 tab PO DAILY 01/20/19 10/06/19 History [Calcium 500-Vit D3 600 Tablet] Apixaban [Eliquis] 5 mg PO BID 30 Days #60 tab 01/25/19 10/06/19 Rx Gabapentin [Neurontin] 600 mg PO HS 10/06/19 10/06/19 History HYDROcodone/APAP 7.5-325MG [[place] 1 tab PO Q4-6H PRN 10/06/19 10/06/19 History 7.5-325] Ibuprofen [Motrin Ib] 800 mg PO BID 10/06/19 10/06/19 History Triamterene-Hctz 37.5-25Mg 1 cap PO DAILY 10/06/19 10/06/19 History [Dyazide 37.5-25 Capsule] rOPINIRole HCL [Requip] 2 mg PO HS 10/06/19 10/06/19 History Allergies Allergy/AdvReac Type Severity Reaction Status Date / Time codeine AdvReac Nausea & Verified 10/06/19 19:09 Vomiting Physical Exam Vitals: Vital Signs Temp Pulse Pulse Resp BP BP Pulse Ox 10/07/19 07:00 98.8 F 98 16 121/78 94 L 10/07/19 04:55 16 10/07/19 00:36 98.6 F 96 16 114/60 95 10/06/19 23:05 16 10/06/19 20:17 98.7 F 94 16 95/49 98 10/06/19 18:21 98 16 94/54 98 10/06/19 17:35 98.7 F 97 18 104/53 95 Intake and Output 10/06/19 10/07/19 10/07/19 22:59 06:59 14:59 Intake Total 200 Output Total 700 Balance -700 200 Intake: Oral 200 Output: Urine 700 Other: Voiding Method Indwelling Catheter Indwelling Catheter Weight 133.356 kg 133.356 kg GENERAL EXAM: Patient is alert and oriented and doesn't appear to be in any acute distress HEENT: Normocephalic. Normal reaction of pupils, equal size, normal range of extraocular motion. No erythema or exudates in the throat. NECK: No masses, no nuchal rigidity. CHEST: No chest wall deformity. LUNGS: Equal air entry with no crackles or wheeze. HEART: S1 and S2 normal with no audible mumurs or gallops. Regular rhythm, femorals equal on both sides.. ABDOMEN: No hepatosplenomegaly, normal bowel sounds, no guarding or rigidity. SKIN: No rashes CENTRAL NERVOUS SYSTEM: No focal deficits. EXTREMITIES: No cyanosis, clubbing or edema. Results 10/07/19 08:28 10/07/19 08:28 Cardiac Enzymes 10/06/19 Range/Units 23:10 AST 92 H (14-36) U/L CBC 10/07/19 Range/Units 08:28 WBC 14.0 H (3.8-10.6) k/uL RBC 3.92 (3.80-5.40) m/uL Hgb 11.6 (11.4-16.0) gm/dL Hct 37.8 (34.0-46.0) % Plt Count 195 (150-450) k/uL Comprehensive Metabolic Panel 10/06/19 10/07/19 Range/Units 23:10 08:28 Sodium 134 L 133 L (137-145) mmol/L Potassium 3.9 3.9 (3.5-5.1) mmol/L Chloride 100 102 (98-107) mmol/L Carbon Dioxide 24 23 (22-30) mmol/L BUN 35 H 34 H (7-17) mg/dL Creatinine 0.92 0.76 (0.52-1.04) mg/dL Glucose 106 H 127 H (74-99) mg/dL Calcium 8.6 8.4 (8.4-10.2) mg/dL AST 92 H (14-36) U/L ALT 51 H (4-34) U/L Alkaline Phosphatase 161 H (38-126) U/L Total Protein 6.2 L (6.3-8.2) g/dL Albumin 3.4 L (3.5-5.0) g/dL Current Medications Generic Name Dose Route Start Last Admin Trade Name Freq PRN Reason Stop Dose Admin Hydrocodone Bitart/Acetaminophen 1 each 10/06/19 22:34 [place] 7.5-325 PO Q6H PRN Pain Apixaban 5 mg 10/07/19 09:00 Eliquis PO BID INGA Calcium Carbonate 2 each 10/07/19 09:00 10/07/19 08:00 [place] 500+D PO 2 each DAILY INGA Administration Carbidopa/Levodopa 2 each 10/07/19 21:00 Sinemet 25-100 PO HS INGA Diazepam 5 mg 10/06/19 19:08 Valium IVP Q4H PRN Seizures Diltiazem HCl 180 mg 10/07/19 09:00 10/07/19 07:55 Cardizem Cd PO 180 mg DAILY INGA Administration Duloxetine HCl 60 mg 10/07/19 09:00 10/07/19 07:54 Cymbalta PO 60 mg BID INGA Administration Ferrous Sulfate 325 mg 10/07/19 09:00 10/07/19 07:54 Feosol PO 325 mg DAILY INGA Administration Gabapentin 600 mg 10/07/19 21:00 Neurontin PO HS INGA Hydromorphone HCl 0.5 mg 10/06/19 22:17 10/07/19 11:11 Dilaudid IVP 0.5 mg Q3HR PRN Administration Pain Hydromorphone HCl 1 mg 10/06/19 22:17 Dilaudid IVP Q3HR PRN Pain Ceftriaxone Sodium 1 gm/ 50 mls @ 100 mls/hr 10/06/19 21:00 10/07/19 08:01 Sodium Chloride IVPB 100 mls/hr Q12HR INGA Administration Vancomycin HCl 2,000 mg/ 500 mls @ 167 mls/hr 10/07/19 21:00 Sodium Chloride IVPB Q16H INGA Levothyroxine Sodium 150 mcg 10/07/19 06:30 10/07/19 05:02 Synthroid PO 150 mcg DAILY@0630 INGA Administration Lorazepam 0.5 mg 10/06/19 22:19 Ativan PO Q6HR PRN Anxiety Miscellaneous Information 1 each 10/09/19 04:00 Vancomycin Trough Due MISCELLANE 10/09/19 04:01 ONCE ONE Multivitamins 1 each 10/07/19 09:00 10/07/19 07:54 Theragran PO 1 each DAILY INGA Administration Ropinirole HCl 2 mg 10/07/19 21:00 Requip PO HS INGA Temazepam 15 mg 10/06/19 22:19 10/06/19 23:04 Restoril PO 15 mg HS PRN Administration Insomnia Triamterene/HCTZ 1 each 10/07/19 09:00 10/07/19 07:56 Dyazide PO 1 each DAILY INGA Administration Intake and Output 10/06/19 10/07/19 10/07/19 22:59 06:59 14:59 Intake Total 200 Output Total 700 Balance -700 200 Intake: Oral 200 Output: Urine 700 Other: Voiding Method Indwelling Catheter Indwelling Catheter Weight 133.356 kg 133.356 kg 10/07/19 08:28 10/07/19 08:28 EKG Interpretations (text) Not available Assessment and Plan (1) Paroxysmal atrial fibrillation Current Visit: Yes Status: Acute Code(s): I48.0 - PAROXYSMAL ATRIAL FIBRILLATION SNOMED Code(s): 064210683 (2) History of paroxysmal supraventricular tachycardia Current Visit: Yes Status: Acute Code(s): Z86.79 - PERSONAL HISTORY OF OTHER DISEASES OF THE CIRCULATORY SYSTEM SNOMED Code(s): 629251418570038 (3) Pain in left hip Current Visit: Yes Status: Acute Code(s): M25.552 - PAIN IN LEFT HIP SNOMED Code(s): 80154539 (4) Pain in left hip Current Visit: Yes Status: Acute Code(s): M25.552 - PAIN IN LEFT HIP SNOMED Code(s): 16962131 Plan: From cardiac standpoint., Patient is maintaining sinus rhythm. Continue current medical therapy
[2019-10-07 15:37] VITALS: TEMP 98.5
--- NOTE | 2019-10-07 15:50 | P.CNOR ---
History of Present Illness - [facility] Consult date: 10/07/19 History of present illness: This patient is a 64-year-old female with past medical history of atrial fibrillation currently on Eliquis, hypertension initially underwent a left total hip arthroplasty with Dr. Henderson in December 2018. The patient simply sustained a left periprosthetic femur fracture, and she underwent an ORIF of the left femur. The patient presented to [facility] yesterday with complaints of increasing, acute left hip pain. The patient states the pain began about 3-4 days ago and has been increasing in nature since this time. She states there is no injury or trauma to the hip. She states she also experiencing fevers and chills. the pain became so severe the patient was unable to bear weight or move the hip without significant pain. Therefore, the patient presented to [place] for evaluation. Upon arrival to [facility], the patient was noted to have an elevated white blood cell count, elevated lactic acid, with high concern for a left hip infection. Therefore, the patient was transferred to [facility] for further evaluation. The patient was admitted under the care of Dr. Boo with a consult placed to orthopedic surgery for further evaluation of her left hip. Doppler US LLE was negative for DVT. WBC was 14.0 upon admission, CRP 417.6, positive blood cultures were reported followin gadmission. Patient was started on vancomycin and Rocephin. At the time of my exam, the patient is complaining of severe left hip pain. She states she is unable to move the pain without a sharp increase of pain. She states she is also experiencing fevers and chills, although this has improved since being admitted. She denies any additional complaints at the time exam. She denies numbness or tingling of the left lower extremity. She denies left knee pain. Vital signs stable. Past Medical History Past Medical History: Atrial Fibrillation, Cancer, Hypertension, Osteoarthritis (OA), Sleep Apnea/CPAP/BIPAP Additional Past Medical History / Comment(s): uses cpap,hx uterine CA-no chemo or radiation, restless legs History of Any Multi-Drug Resistant Organisms: None Reported Past Surgical History: Hysterectomy, Joint Replacement, Orthopedic Surgery Additional Past Surgical History / Comment(s): rt hip repacement,paulie en y,left thumb jt arthroplasty,carpel tunnel release solo,micro discectomy L4-L5, left hip replacement Past Anesthesia/Blood Transfusion Reactions: No Reported Reaction Additional Past Anesthesia/Blood Transfusion Reaction / Comm: no problems with prior blood transfusion Past Psychological History: Anxiety, Depression Smoking Status: Never smoker Past Alcohol Use History: None Reported Past Drug Use History: None Reported - Past Family History Mother Family Medical History: Cancer Additional Family Medical History / Comment(s): lung CA Medications and Allergies Home Medications Medication Instructions Recorded Confirmed Type Carbidopa-Levodopa 25-100 mg 2 tab PO HS 12/21/18 10/06/19 History [Sinemet 25-100 mg] DULoxetine HCL [Cymbalta] 60 mg PO BID 12/21/18 10/06/19 History Diltiazem HCl [Cardizem LA] 180 mg PO DAILY 12/21/18 10/06/19 History Ferrous Sulfate [Iron (65 MG 325 mg PO DAILY 12/21/18 10/06/19 History Elemental)] Levothyroxine Sodium 150 mcg PO DAILY 12/21/18 10/06/19 History Multivitamins, Thera [Multivitamin 1 tab PO DAILY 12/21/18 10/06/19 History (formulary)] Calcium Carbonate/Vitamin D3 2 tab PO DAILY 01/20/19 10/06/19 History [Calcium 500-Vit D3 600 Tablet] Apixaban [Eliquis] 5 mg PO BID 30 Days #60 tab 01/25/19 10/06/19 Rx Gabapentin [Neurontin] 600 mg PO HS 10/06/19 10/06/19 History HYDROcodone/APAP 7.5-325MG [[place] 1 tab PO Q4-6H PRN 10/06/19 10/06/19 History 7.5-325] Ibuprofen [Motrin Ib] 800 mg PO BID 10/06/19 10/06/19 History Triamterene-Hctz 37.5-25Mg 1 cap PO DAILY 10/06/19 10/06/19 History [Dyazide 37.5-25 Capsule] rOPINIRole HCL [Requip] 2 mg PO HS 10/06/19 10/06/19 History Allergies Allergy/AdvReac Type Severity Reaction Status Date / Time codeine AdvReac Nausea & Verified 10/06/19 19:09 Vomiting Physical Examination on examination, the patient is lying in bed in no apparent distress. She is alert and oriented 3. A focused examination was conducted of the left hip. On inspection of the left hip, there is swelling of the left hip. There are two healed incisions over the anterior and lateral hip. There is no significant erythema to the hip. The left hip and thigh are more firm on palpation compared to the right. there is significant pain on palpation diffusely about the hip. There is very severe pain with any attempted passive range of motion of the hip. There is no pain on palpation of the left knee, calf, ankle, foot. Patient has good strength range of motion of the left ankle. Motor and sensory function are intact of the left lower extremity. Dorsalis pedis pulse +2. Left lower extremity is warm and well-perfused with brisk capillary refill distally. No pain with PROM of the left knee. No pain on palpation of the left calf. Results Left hip x-ray at [facility] 10/06/19: Evidence of prior SHANI and ORIF tommie- prosthetic fracture with discontinuity of the distal cable. Increased lucency at distal stem, possibly related to infection, with loosening of stem. No acute fractures. Left knee x-ray at [facility] 10/06/19: No acute fractures. - Labs Labs: Abnormal Lab Results - Last 24 Hours (Table) 10/06/19 10/07/19 10/07/19 Range/Units 23:10 05:20 08:28 WBC (3.8-10.6) k/uL MCHC (31.0-37.0) g/dL Neutrophils # (1.3-7.7) k/uL Lymphocytes # (1.0-4.8) k/uL Sodium 134 L 133 L (137-145) mmol/L BUN 35 H 34 H (7-17) mg/dL Glucose 106 H 127 H (74-99) mg/dL AST 92 H (14-36) U/L ALT 51 H (4-34) U/L Alkaline Phosphatase 161 H (38-126) U/L C-Reactive Protein (<10.0) mg/L Total Protein 6.2 L (6.3-8.2) g/dL Albumin 3.4 L (3.5-5.0) g/dL Urine Appearance Cloudy H (Clear) Urine Protein 1+ H (Negative) Urine Blood Moderate H (Negative) Urine RBC >182 H (0-5) /hpf Urine WBC 6 H (0-5) /hpf Urine Bacteria Rare H (None) /hpf Urine Mucus Rare H (None) /hpf 10/07/19 10/07/19 Range/Units 08:28 08:28 WBC 14.0 H (3.8-10.6) k/uL MCHC 30.7 L (31.0-37.0) g/dL Neutrophils # 12.3 H (1.3-7.7) k/uL Lymphocytes # 0.9 L (1.0-4.8) k/uL Sodium (137-145) mmol/L BUN (7-17) mg/dL Glucose (74-99) mg/dL AST (14-36) U/L ALT (4-34) U/L Alkaline Phosphatase (38-126) U/L C-Reactive Protein 417.6 H (<10.0) mg/L Total Protein (6.3-8.2) g/dL Albumin (3.5-5.0) g/dL Urine Appearance (Clear) Urine Protein (Negative) Urine Blood (Negative) Urine RBC (0-5) /hpf Urine WBC (0-5) /hpf Urine Bacteria (None) /hpf Urine Mucus (None) /hpf Microbiology - Last 24 Hours (Table) 10/06/19 23:10 Blood Culture Gram Stain - Preliminary Blood 10/06/19 23:10 Blood Culture - Final Blood H & H 10/07/19 Range/Units 08:28 Hgb 11.6 (11.4-16.0) gm/dL Hct 37.8 (34.0-46.0) % Result Diagrams: 10/07/19 08:28 10/07/19 08:28 Assessment and Plan Assessment: History of left SHANI and ORIF tommie-prosthetic fracture [place] [address] Henderson with possible acute left hip infection Plan: - The clinical and imaging findings were discussed with the patient and Dr. Everardo Henderson. Based on current clinical concerns, we recommend transfer to [facility] for further evaluation and definitive treatment. This plan was discussed with the patient, which she is agreeable to at this time. - Medical management per internal medicine team.
--- NOTE | 2019-10-07 16:19 | P.PN ---
Progress Note - Text Progress Note Date: 10/07/19 Initial consult was placed for possible abnormal MRI. However the MRI was that of a different patient. Therefore consult has been cancelled
[2019-10-07] MEDS ORDERED: GABAPENTIN 300 MG CAP PO SCH (21:00)
[2019-10-07] MEDS ORDERED: CARBIDOPA-LEVODOPA 25-100 MG 1 EACH TAB PO SCH (21:00)
--- NOTE | 2019-10-07 21:06 | PN ---
PROGRESS NOTE DATE OF SERVICE: 10/07/2019 This 64-year-old woman was admitted with significant left hip pain and gait dysfunction is suspected to have significant infection. Uric acid is only 16. CRP is elevated to 417. The sodium is 133 and cultures are negative so far. The patient is evaluated by multiple consultants including Orthopedic surgery who recommended the patient to be transferred to [facility] for further evaluation and treatment. The patient had multiple surgeries. Currently the white count is still elevated 14. As mentioned, cultures are negative. Patient on broad spectrum IV antibiotics. Past medical history reviewed. REVIEW OF SYSTEMS: Cardiovascular: No angina or palpitations. Respiration as mentioned earlier. GI: As mentioned earlier. no dysuria. Musculoskeletal as mentioned earlier. The patient has significant difficulties moving the left leg, significant pain and swelling. CURRENT MEDICATIONS: Reviewed and include: [place] 7.5 mg, Eliquis 5 mg, [place] with vitamin D, Sinemet 25/100, Rocephin 1 g, Valium, Cardizem CD, Cymbalta, iron sulfate, Neurontin, Dilaudid, Synthroid, Ativan, vancomycin, multivitamins, Requip, Restoril, Dyazide. PHYSICAL EXAM: Patient is alert, oriented x3. Pulse 98. Blood pressure 121/72, respiration 16, temperature 98.8, pulse ox 94% on room air. HEENT: Conjunctivae normal. NECK: No JVD. CARDIOVASCULAR: S1, S2 muffled. RESPIRATORY: Breath sounds diminished in the bases. No rhonchi. No crackles. ABDOMEN: Soft, obese, nontender. No mass palpable. LEGS: Significant swelling of the left leg, movements extremely painful. Some erythema also present. NERVOUS SYSTEM: As mentioned earlier. SKIN: As mentioned earlier. JOINTS as mentioned earlier. LAB STUDIES: WBC 14, sodium 130, potassium 3.9. ASSESSMENT: 1. Significant left hip pain and gait dysfunction, rule out left hip septic arthritis with possible sepsis. 2. History of left hip replacement, periprosthetic fracture and revision. 3. Gait dysfunction, severe. 4. Hyponatremia. 5. Increased WBC. 6. Elevated AST/ALT with possible acute hepatitis. 7. Increased CRP. 8. Hematuria. 9. Gait dysfunction severe. 10.Severe pain uncontrolled with failure of outpatient treatment. 11.Atrial fibrillation. 12.History of hypertension. 13.History of degenerative joint disease. 14.Sleep apnea on CPAP. 15.History of uterine cancer. 16.History of motion sickness. 17.History of anxiety, depression. 18.Obesity with body mass index of 50.5. RECOMMENDATIONS AND DISCUSSION: Recommend to continue current medications. continue symptomatic treatment. Broad- spectrum IV antibiotics. Follow the cultures. DVT prophylaxis. Closely follow with multiple consultants. Tertiary care referral per Orthopedic Surgery. Further recommendations to follow. MMODL / IJN: [id number] /
[2019-10-07 21:08] VITALS: BP 94/60; PULSE 96
--- NOTE | 2019-10-08 09:09 | P.CONS ---
History of Present Illness - Reason for Consult Consult date: 10/07/19 Left hip septic arthritis Requesting physician: Bibiana Boo - Chief Complaint Left hip pain and fever x few days - History of Present Illness Patient is a 64-year-old female with a past medical history significant for left hip arthroplasty in December 2018 patient subsequently sustained a left periprosthetic femoral fracture for the patient did underwent ORIF of left leg femur in January 2019 patient presented to outside facility with a chief complaints of acute worsening of left-sided hip pain, patient denies any history of any trauma patient described the pain to be more of a sharp almost 10 out of 10 and worse with bearing weight on the left leg patient also started having a fever with rigors and chills patient presented to [facility] ER on arrival to the ER patient was noticed to have leukocytosis and elevated lactic acid patient also have an x-rays of the left hip subsequently the patient has been transferred to [facility] for further management and concern for left hip septic arthritis patient has been treated with Rocephin and vancomycin blood cultures coming back positive with gram-positive cocci that prompted this infectious disease consultation, the patient denies having any headache and no URI symptoms no chest pain shortness of breath no nausea no vomiting no abdominal pain no diarrhea and no urinary symptoms, patient did have a white count of 14,000 with elevated CRP however no fever has been recorded since the patient has been transferred to this facility, has been evaluated by orthopedics who wanted the patient be transferred to tertiary care because of her complicated history Review of Systems Positive point has been mentioned in the HPI rest of the systems are negative Past Medical History Past Medical History: Atrial Fibrillation, Cancer, Hypertension, Osteoarthritis (OA), Sleep Apnea/CPAP/BIPAP Additional Past Medical History / Comment(s): uses cpap,hx uterine CA-no chemo or radiation, restless legs History of Any Multi-Drug Resistant Organisms: None Reported Past Surgical History: Hysterectomy, Joint Replacement, Orthopedic Surgery Additional Past Surgical History / Comment(s): rt hip repacement,paulie en y,left thumb jt arthroplasty,carpel tunnel release solo,micro discectomy L4-L5, left hip replacement Past Anesthesia/Blood Transfusion Reactions: No Reported Reaction Additional Past Anesthesia/Blood Transfusion Reaction / Comm: no problems with prior blood transfusion Past Psychological History: Anxiety, Depression Smoking Status: Never smoker Past Alcohol Use History: None Reported Past Drug Use History: None Reported - Past Family History Mother Family Medical History: Cancer Additional Family Medical History / Comment(s): lung CA Medications and Allergies Home Medications Medication Instructions Recorded Confirmed Type Carbidopa-Levodopa 25-100 mg 2 tab PO HS 12/21/18 10/06/19 History [Sinemet 25-100 mg] DULoxetine HCL [Cymbalta] 60 mg PO BID 12/21/18 10/06/19 History Diltiazem HCl [Cardizem LA] 180 mg PO DAILY 12/21/18 10/06/19 History Ferrous Sulfate [Iron (65 MG 325 mg PO DAILY 12/21/18 10/06/19 History Elemental)] Levothyroxine Sodium 150 mcg PO DAILY 12/21/18 10/06/19 History Multivitamins, Thera [Multivitamin 1 tab PO DAILY 12/21/18 10/06/19 History (formulary)] Calcium Carbonate/Vitamin D3 2 tab PO DAILY 01/20/19 10/06/19 History [Calcium 500-Vit D3 600 Tablet] Apixaban [Eliquis] 5 mg PO BID 30 Days #60 tab 01/25/19 10/06/19 Rx Gabapentin [Neurontin] 600 mg PO HS 10/06/19 10/06/19 History HYDROcodone/APAP 7.5-325MG [[place] 1 tab PO Q4-6H PRN 10/06/19 10/06/19 History 7.5-325] Ibuprofen [Motrin Ib] 800 mg PO BID 10/06/19 10/06/19 History Triamterene-Hctz 37.5-25Mg 1 cap PO DAILY 10/06/19 10/06/19 History [Dyazide 37.5-25 Capsule] rOPINIRole HCL [Requip] 2 mg PO HS 10/06/19 10/06/19 History Allergies Allergy/AdvReac Type Severity Reaction Status Date / Time codeine AdvReac Nausea & Verified 10/06/19 19:09 Vomiting Physical Exam Vitals: Vital Signs Temp Pulse Pulse Resp BP BP Pulse Ox 10/07/19 07:00 98.8 F 98 16 121/78 94 L 10/07/19 04:55 16 10/07/19 00:36 98.6 F 96 16 114/60 95 10/06/19 23:05 16 10/06/19 20:17 98.7 F 94 16 95/49 98 10/06/19 18:21 98 16 94/54 98 10/06/19 17:35 98.7 F 97 18 104/53 95 Intake and Output 10/06/19 10/07/19 10/07/19 22:59 06:59 14:59 Output Total 700 Balance -700 Output: Urine 700 Other: Voiding Method Indwelling Catheter Indwelling Catheter Weight 133.356 kg 133.356 kg GENERAL DESCRIPTION: An elderly female lying in bed, no distress. No tachypnea or accessory muscle of respiration use. HEENT: Shows Pallor , no scleral icterus. Oral mucous membrane is dry. No pharyngeal erythema or thrush NECK: Trachea central, no thyromegaly. LUNGS: Unlabored breathing. Clear to auscultation anteriorly. No wheeze or crackle. HEART: S1, S2, regular rate and rhythm. No loud murmur ABDOMEN: Soft, no tenderness , guarding or rigidity, no organomegaly EXTREMITIES: No edema of feet. Left hip incision is currently healed no significant swelling or redness though slight tenderness SKIN: No rash, no masses palpable. NEUROLOGICAL: The patient is awake, alert, oriented x3, mood and affect normal. Results CBC & Chem 7: 10/07/19 08:28 10/07/19 08:28 Labs: Abnormal Lab Results - Last 24 Hours (Table) 10/06/19 10/07/19 10/07/19 Range/Units 23:10 05:20 08:28 WBC (3.8-10.6) k/uL MCHC (31.0-37.0) g/dL Neutrophils # (1.3-7.7) k/uL Lymphocytes # (1.0-4.8) k/uL Sodium 134 L 133 L (137-145) mmol/L BUN 35 H 34 H (7-17) mg/dL Glucose 106 H 127 H (74-99) mg/dL AST 92 H (14-36) U/L ALT 51 H (4-34) U/L Alkaline Phosphatase 161 H (38-126) U/L C-Reactive Protein (<10.0) mg/L Total Protein 6.2 L (6.3-8.2) g/dL Albumin 3.4 L (3.5-5.0) g/dL Urine Appearance Cloudy H (Clear) Urine Protein 1+ H (Negative) Urine Blood Moderate H (Negative) Urine RBC >182 H (0-5) /hpf Urine WBC 6 H (0-5) /hpf Urine Bacteria Rare H (None) /hpf Urine Mucus Rare H (None) /hpf 10/07/19 10/07/19 Range/Units 08:28 08:28 WBC 14.0 H (3.8-10.6) k/uL MCHC 30.7 L (31.0-37.0) g/dL Neutrophils # 12.3 H (1.3-7.7) k/uL Lymphocytes # 0.9 L (1.0-4.8) k/uL Sodium (137-145) mmol/L BUN (7-17) mg/dL Glucose (74-99) mg/dL AST (14-36) U/L ALT (4-34) U/L Alkaline Phosphatase (38-126) U/L C-Reactive Protein 417.6 H (<10.0) mg/L Total Protein (6.3-8.2) g/dL Albumin (3.5-5.0) g/dL Urine Appearance (Clear) Urine Protein (Negative) Urine Blood (Negative) Urine RBC (0-5) /hpf Urine WBC (0-5) /hpf Urine Bacteria (None) /hpf Urine Mucus (None) /hpf Assessment and Plan Assessment: 1- patient presented to the outside facility with sepsis in this patient who did have a fever and elevated white count and elevated lactic acid her symptom has been around the left hip pain with concern for left hip septic arthritis in this patient who did have history of left hip replacement followed by a prosthetic femur fracture status post repair last year and concerning for left hip septic arthritis possibly from a gram-positive skin ninfa as the patient currently do not have any obvious focus of infection 2- gram-positive bacteremia likely related to her septic arthritis (1) Sepsis Status: Acute Code(s): A41.9 - SEPSIS, UNSPECIFIED ORGANISM SNOMED Code(s): 00294761 (2) Gram-positive cocci bacteremia Status: Acute Code(s): R78.81 - BACTEREMIA SNOMED Code(s): 700420924191 Plan: 1-blood cultures will be repeated to document clearance of bacteremia 2-Vancomycin pharmacy to dose target trough of 15 while watching his kidney function and Vanco trough closely, patient to continue with IV vancomycin and Rocephin the patient is evaluated by infectious disease service at the tertiary care Thank you for this consultation Time with Patient: Greater than 30
[2019-10-09] MEDS ORDERED: VANCOMYCIN TROUGH DUE 1 EACH MISC MISCELLANE ONE (04:00)
--- NOTE | 2019-10-12 00:56 | CDI ---
Documentation Clarification Form Date: 10/12/2019 From: Dilan Soto Phone: If you have a question about this query, please contact Giana Ken, [employer] at [phone] between 8am and 5pm. Admit Date: 10/06/2019 Discharge Date: 10/07/2019 Patient Name: Janna Orr Visit Number: [id number] ATTENTION: The Clinical Documentation Specialists (CDI) and [facility] Coding Staff appreciate your assistance in clarifying documentation. Please respond to the clarification below the line at the bottom and electronically sign. The CDI & [facility] Coding staff will review the response and follow-up if needed. Please note: Queries are made part of the Legal Health Record. If you have any questions, please contact the author of this message via ITS. Dear Everardo Gaston., The patient presented with sepsis in this patient who did have a fever and elevated white count and elevated lactic acid her symptom has been around the left hip pain with concern for left hip septic arthritis. History/Risk Factors: Left hip replacement, Obesity Radiology findings:Left hip x-ray at [facility] 10/06/19: Evidence of prior SHANI and ORIF tommie- prosthetic fracture with discontinuity of the distal cable.Increased lucency at distal stem, possibly related to infection, with loosening of stem.No acute fractures. Consults: History of left SHANI and ORIF tommie-prosthetic fracture in [address] Henderson with possible acute left hip infection. The clinical and imaging findings were discussed with the patient and Dr. Everardo Henderson.Based on current clinical concerns, we recommend transfer to [facility] for further evaluation and definitive treatment. In your professional opinion, can you please clarify Left hip Infection? Related Arthroplasty Surgical procedure Related to Hip Arthroplasty Prosthetic device(Implant) Other, please specify Unable to determine Related to Hip Arthroplasty Prosthetic device(Implant) MTDD
== END 2019-10-07 20:36 | disposition short-term general hospital (02) | DRG 559 ==
LOC: EC 17:18 → 4SSUR 18:29
PROVIDERS: ADMIT Hospitalist; ATTEND Hospitalist
DX: T84.52XA Infection and inflammatory reaction due to internal left hip prosthesis, initial encounter (principal); A40.9 Streptococcal sepsis, unspecified; Z68.43 Body mass index [BMI] 50.0-59.9, adult; E87.1 Hypo-osmolality and hyponatremia; M00.252 Other streptococcal arthritis, left hip; G25.81 Restless legs syndrome; I10 Essential (primary) hypertension; I48.0 Paroxysmal atrial fibrillation; E66.9 Obesity, unspecified; Z96.641 Presence of right artificial hip joint; Z96.642 Presence of left artificial hip joint; F32.9 Major depressive disorder, single episode, unspecified; F41.9 Anxiety disorder, unspecified; M16.12 Unilateral primary osteoarthritis, left hip; R31.9 Hematuria, unspecified; G47.30 Sleep apnea, unspecified; Z11.59 Encounter for screening for other viral diseases; Z85.42 Personal history of malignant neoplasm of other parts of uterus; Z90.710 Acquired absence of both cervix and uterus; Z98.890 Other specified postprocedural states; Z80.1 Family history of malignant neoplasm of trachea, bronchus and lung; Z79.01 Long term (current) use of anticoagulants; Z79.890 Hormone replacement therapy; Z79.899 Other long term (current) drug therapy; Z88.5 Allergy status to narcotic agent
CPT/HCPCS: 71045; 80048; 80053; 81001; 83605; 84550; 85025; 86140; 87040; 87077; 87186; 87635; 93005; 96361; 96374; 96375; 99285